=== PATIENT | male | born 1960 ===

== ENCOUNTER → 2020-01-17 08:58 | Outpatient (BNVA) | payer OTHER, SELFPAY | PROVIDERS: PCP Internal Medicine; Visit Provider Physician Assistant Medical | DX: S33.6XXA Sprain of sacroiliac joint, initial encounter (principal); X58.XXXA Exposure to other specified factors, initial encounter | CPT/HCPCS: 99213 ==

== ENCOUNTER → 2020-02-06 14:18 | Outpatient (BNVA) | payer OTHER, SELFPAY | PROVIDERS: PCP Internal Medicine; Visit Provider Physician Assistant Medical | DX: S33.6XXD Sprain of sacroiliac joint, subsequent encounter (principal); X58.XXXD Exposure to other specified factors, subsequent encounter | CPT/HCPCS: 99213 ==

== ENCOUNTER 2020-02-24 10:00 | Outpatient (RCR) | payer OTHER, SELFPAY ==
--- NOTE | 2020-01-24 11:18 | MHC.PT.EP ---
[facility] [place] [facility] [place] Office [place] Office [address] Aislinn Mena [address] [phone] F: [phone] F: [phone] F: [phone] F: [phone] Physical Therapy Plan of Care Date of Evaluation: 01/24/20 Date of Surgery: N/A Diagnosis: R SI sprain Assessment: pt's symptoms and objective findings consistent w/ lumbar nerve root impingement. pt responded well to Chele extension and currently centralizes pain w/ prone lying. pt presents to physical therapy with pain, decreased range of motion, impaired functional mobility, impaired postural awareness, and gait deviations. pt is a good candidate for skilled PT due to age, potential remediation of impairments, typical disease/condition progression and prognosis, comorbidities, and motivation. pt would benefit from tailored strengthening and stretching exercise program, functional training, gait training, postural re-training, neuromuscular re-education, modalities as needed for pain, and work-related education and training. Frequency and Duration: The patient will be seen 2x/wk for 5 wks Short Term Goals: pt will be I w/ HEP to promote self-management of condition. pt will demo proper sitting posture w/ lumbar roll to encourage lumbar lordosis posturing. 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 pt will report statistically significant improvement in self-reported outcome measure, Melva, to facilitate full return to ADLs. Treatment Plan: Modalities to reduce pain, spasms and effusion. Manual therapy to restore motion and function. Therapeutic exercise to improve strength and flexibility. Neuromuscular re-education for posture and balance. Therapeutic activities to return to functional activities of daily living. Please sign and return to therapist. Thank you for your referral.
--- NOTE | 2020-02-24 10:51 | MHC.PT.DC ---
[facility] [place] Office [place] Office [place] Office [address] Aislinn Mena 140 [facility] [phone] F: [phone] F: [phone] F: [phone] F: [phone] Physical Therapy Discharge Report Diagnosis: R SI sprain Date of Surgery: N/A Date of Evaluation: 01/24/20 Date of Discharge: 02/24/20 Treatments to Date: 10 Cancellations to Date: 0 No Shows to Date: 0 Discharge Status: Achieved Goals Improved Function Independent with HEP Discharge Summary: The patient has improved significantly regarding his pain severity, frequency, and ability to tolerate therapeutic exercise and activity. He has participated in lifting mechanics and how safely lift objects at work. The patient has achieved all goals established at the initial evaluation. He is independent with his home exercise program. He reported a statistically significant improvement in his self-reported outcome measure, Modified Oswestry Disability Index, compared to the initial evaluation. He is discharged from this physical therapy plan of care to his home exercise program. Electronically signed by: Garima Stevens PT, DPT Please sign and return to therapist. Thank you for your referral.
== END 2020-02-24 10:51 | disposition other institution (70) ==
LOC: HO.PT 10:00
PROVIDERS: Visit Provider Internal Medicine
DX: S33.6XXD Sprain of sacroiliac joint, subsequent encounter (principal)
CPT/HCPCS: 97110; 97140; 97161; 97530

== ENCOUNTER → 2020-02-25 09:20 | Outpatient (BNVA) | payer OTHER, SELFPAY | PROVIDERS: PCP Internal Medicine; Visit Provider Physician Assistant | DX: S33.6XXD Sprain of sacroiliac joint, subsequent encounter (principal); X58.XXXD Exposure to other specified factors, subsequent encounter | CPT/HCPCS: 99213 ==

== ENCOUNTER 2020-04-07 07:36 | Outpatient (REF) | payer OTHER, SELFPAY | END 2020-04-07 07:37 | disposition home or self-care (01) | LOC: HO.LAB 07:36 | PROVIDERS: PCP Internal Medicine; Visit Provider Internal Medicine | DX: Z20.828 Contact with and (suspected) exposure to other viral communicable diseases (principal) | CPT/HCPCS: C9803; U0003 ==

== ENCOUNTER 2020-04-08 11:49 | Emergency (ER) | payer OTHER, SELFPAY ==
[2020-04-08 12:00] VITALS: BP 136/78; RESP 88; TEMP 37.7; O2SAT 98
[2020-04-08 12:02] VITALS: BP 134/82; PULSE 115; RESP 18; TEMP 38.8; O2SAT 96; BMI 29.7
--- NOTE | 2020-04-08 12:23 | XR_ITS ---
EXAMINATION: XR CHEST CLINICAL INFORMATION: Cough and fever. COMPARISON: None TECHNIQUE: Frontal view of the chest was obtained. FINDINGS: The lungs are well-expanded with patchy opacity left midlung likely focal infiltrate. Rest of lungs are clear. The heart size and pulmonary vascularity is normal. No gross bony abnormality seen. XR/XR chest 1V IMPRESSION: Focal patchy opacity left midlung question for infiltrate or underlying lesion. No additional abnormality seen..
[2020-04-08] MEDS: Acetaminophen 325 MG TABLET 975 MG PO (12:43)
[2020-04-08] MEDS: 0.9 % Sodium Chloride 1,000 ML 999 ML IV (12:44)
[2020-04-08 12:45] LABS: MANUAL DIFF FLAG NO
[2020-04-08 12:53] LABS: Basophils Percent Auto 0.2 % (0-2); Eosinophils Percent Auto 0.2 % (0-4); Hematocrit 43.1 % (42-52); Hemoglobin 14.8 g/dl (14.0-18.0); Imm Gran Abs Auto 0.01 X10*3/uL (0.00-0.03); Imm Gran Pct Auto 0.2 % (0.0-0.4); Lymphocytes Percent Auto 19.9 % (20-40); Mean Corpuscular HGB Conc 34.3 g/dl (31.0-36.0); Mean Corpuscular Hemoglobin 30.9 pg (27.0-33.0); Mean Platelet Volume 9.6 fL (9.4-12.4); Monocytes Absolute Auto 0.4 X10*3/uL (0.1-1.2); Neutrophils Absolute Auto 3.5 X10*3/uL (2.0-8.3); Neutrophils Percent Auto 71.5 % (45-73); Platelet Count 175 X10*3/uL (160-400); Red Blood Count 4.79 X10*6/uL (4.60-5.80); Red Cell Distribution Width 11.6 % (11.0-16.0); White Blood Count 4.9 X10*3/uL (4.8-10.8)
[2020-04-08 13:13] LABS: Alanine Aminotransferase 26 U/L (0-40); Albumin Level 3.9 g/dL (3.5-5.0); Alkaline Phosphatase 59 U/L (39-117); Anion Gap 12 (12-20); Aspartate Amino Transferase 19 U/L (5-37); Bilirubin Total 0.6 mg/dL (0.0-1.0); Blood Urea Nitrogen 19 mg/dL (9-16); Calcium 8.3 mg/dL (8.4-10.2); Carbon Dioxide 27 mmol/L (22-29); Chloride 104 mmol/L (96-108); Creatinine Clr Calc Pharmacy 82.7; Estimated Glomerular Filt Rate > 60; Glucose Random 98 mg/dL (60-115); Potassium 3.7 mmol/l (3.3-5.1); Sodium 139 mmol/L (135-145); Total Protein 6.8 g/dL (6.5-8.0)
[2020-04-08 13:19] LABS: Troponin-I High Sensitivity < 3.5 ng/L (<3.5-35.0)
[2020-04-08 13:31] LABS: Influenza A PCR NEGATIVE (Negative); Influenza B PCR NEGATIVE (Negative); Resp Syncy Virus RNA Qual PCR NEGATIVE (Negative); SARS COV2 PCR INHOUSE POSITIVE (Negative)
[2020-04-08 14:00] VITALS: BP 132/78; PULSE 86; RESP 18; TEMP 37.3; O2SAT 98
--- NOTE | 2020-04-08 14:21 | ED_ITS ---
HPI - URI/Sore Throat General Chief Complaint: Fever Stated Complaint: cough and fever Time Seen by Provider: 04/08/20 12:23 Source: patient Mode of arrival: ambulatory Limitations: no limitations History of Present Illness HPI Narrative: Cough, runny nose, congestion, body aches chills with subjective fever MD elicited complaint: cough Onset (ago): day(s) (2 days) Description of mucous: clear Relieving factors: nothing Associated symptoms: denies other symptoms Treatments prior to arrival: none Related Data Previous Rx's Medication Instructions Recorded albuterol sulfate 2 puff INHALATION Q4-6H PRN #8.5 g 04/08/20 azithromycin [Zithromax Z-Boinlla] 250 mg PO DAILY 5 Days #6 tab 04/08/20 benzonatate [Tessalon Perles] 100 mg PO BID PRN #14 cap 04/08/20 Allergies Allergy/AdvReac Type Severity Reaction Status Date / Time No Known Allergies Allergy Verified 04/08/20 12:08 Review of Systems Review of Systems: Constitutional: No Weight loss, No Fever, No Chills, No Night Sweats, No Fatigue, No Malaise ENT/Mouth: No Hearing loss, No Ear Pain, + Nasal Congestion, No Sinus Pain, No Hoarseness,No sore throat, + Rhinorrhea, No Swallowing Difficulty Eyes: No Eye Pain, No Swelling, No Redness, No Foreign Body, No Discharge, No Vision Changes Cardiovascular: No Chest Pain, No SOB, No Dyspnea on Exertion, No Orthopnea, No Edema, No Palpitations Respiratory: + Cough, No Sputum, No Wheezing, No Smoke Exposure, No Dyspnea Gastrointestinal: No Nausea, No Vomiting, No Diarrhea, No Constipation, No abdominal Pain Genitourinary: No Dysuria, No Urinary Frequency, No Hematuria, No Urinary Incontinence, No Urgency, No Flank Pain, No Urinary Flow Changes Musculoskeletal: No joint pain, No Myalgias, No Joint Swelling Skin: No Skin Lesions, No rash Neuro: No Weakness, No Numbness, No Paresthesias, No Loss of Consciousness, No Dizziness, No Headache Psych: No Social Issues Heme/Lymph: No Bruising, No Bleeding,No Lymphadenopathy Endocrine: No Polyuria, No Polydipsia, No Temperature Intolerance Yes all other systems are reviewed and are negative PMFSH Past Medical History Medical History Hypertension No known health problems Social History Social History Advance Directives: No Advance Directives Information Provided: Yes Physical Exam Vital Signs: Vital Signs: Last Vital Signs Temp 99.2 F 04/08/20 14:00 Pulse 86 04/08/20 14:00 Resp 18 04/08/20 14:00 BP 132/78 04/08/20 14:00 Pulse Ox 98 04/08/20 14:00 Body Mass Index 29.7 Reviewed Const: General: cooperative and healthy appearing; No acute distress or intoxicated appearing Nutritional Appearance: average body habitus Orien tation/consciousness: patient oriented x3 HENMT: Head: Yes normal to inspection Ears: hearing grossly normal bilaterally Eyes: General: appearance normal, both eyes and all related structures Visual Campbell: normal visual campbell by confrontation Neck: Neck: Yes normal visual inspection, No positive Brudzinski's sign, No positive Kernig's sign and No tender Thyroid: Thyroid normal Chest: Chest palpation & inspection: normal inspection of the chest Breast /axilla inspection: normal inspection of the breasts Resp: Effort & Inspection: normal respiratory effort Auscultation: clear to auscultation bilaterally Cardio: Jugular venous distension: no JVD Rhythm: regular rhythm Heart sounds: S1 normal heart sound present and S2 normal heart sound present GI: Inspection: Yes normal to inspection Percussion: Yes normal to percus olivia Auscultation: normal bowel sounds : General: Yes no CVA tenderness Back/Spine/Pelvis: Back: no CVA tenderness Skin: General skin exam: no rashes or lesions noted Neuro: General: patient oriented x3 Extrem: General: Yes normal to inspection MDM - URI/Sore Throat MDM Narrative Medical decision making narrative: Labs overall stable chest x-ray finding is noted. Patient overall nontoxic appearing. Hemodynamically stable. Pulse ox 98% on room air. Will discharge with home care, return, follow-up instructions. Verbalized understanding. Stable for discharge. Differential Diagnosis Differential diagnosis: Likely upper respiratory infection, viral infection, bronchitis and influenza; Unlikely croup, otitis media, sinusitis and pharyngitis Medical Records Attestation: I reviewed the patient's medical records. Lab Data Attestation: I reviewed the patient's lab results. Result diagrams: 04/08/20 12:36 04/08/20 12:36 Labs: Lab Results 04/08/20 04/08/20 04/08/20 Range/Units 12:29 12:36 12:36 WBC 4.9 (4.8-10.8) X10*3/uL RBC 4.79 (4.60-5.80) X10*6/uL Hgb 14.8 (14.0-18.0) g/dl Hct 43.1 (42-52) % MCV 90.0 (80-98) fL MCH 30.9 (27.0-33.0) pg MCHC 34.3 (31.0-36.0) g/dl RDW 11.6 (11.0-16.0) % Plt Count 175 (160-400) X10*3/uL MPV 9.6 (9.4-12.4) fL Immature Gran % (Auto) 0.2 (0.0-0.4) % Neut % (Auto) 71.5 (45-73) % Lymph % (Auto) 19.9 L (20-40) % Bucks % (Auto) 8.0 (2-11) % Eos % (Auto) 0.2 (0-4) % Baso % (Auto) 0.2 (0-2) % Lymph # (Auto) 1.0 L (1.2-4.9) X10*3/uL Bucks # (Auto) 0.4 (0.1-1.2) X10*3/uL Eos # (Auto) 0.0 (0.0-0.4) X10*3/uL Baso # (Auto) 0.0 (0.0-0.2) X10*3/uL Abs Immat Gran (auto) 0.01 (0.00-0.03) X10*3/uL Absolute Neuts (auto) 3.5 (2.0-8.3) X10*3/uL Absolute Nucleated RBC 0.000 (0.0-0.012) X10*3/uL Nucleated RBC % (auto) 0.0 (0.0-0.2) /100WBC Sodium 139 (135-145) mmol/L Potassium 3.7 (3.3-5.1) mmol/l Chloride 104 (96-108) mmol/L Carbon Dioxide 27 (22-29) mmol/L Anion Gap 12 (12-20) BUN 19 H (9-16) mg/dL Creatinine 1.02 (0.5-1.4) mg/dL Estim Creat Clear Calc 82.7 Estimated GFR > 60 Random Glucose 98 (60-115) mg/dL Calcium 8.3 L (8.4-10.2) mg/dL Total Bilirubin 0.6 (0.0-1.0) mg/dL AST 19 (5-37) U/L ALT 26 (0-40) U/L Alkaline Phosphatase 59 (39-117) U/L Troponin I High Sens (<3.5-35.0) ng/L Total Protein 6.8 (6.5-8.0) g/dL Albumin 3.9 (3.5-5.0) g/dL Coronavirus (PCR) POSITIVE A (Negative) Influenza Type A (PCR) NEGATIVE (Negative) Influenza Type B (PCR) NEGATIVE (Negative) RSV RNA Qual (PCR) NEGATIVE (Negative) 04/08/20 Range/Units 12:36 WBC (4.8-10.8) X10*3/uL RBC (4.60-5.80) X10*6/uL Hgb (14.0-18.0) g/dl Hct (42-52) % MCV (80-98) fL MCH (27.0-33.0) pg MCHC (31.0-36.0) g/dl RDW (11.0-16.0) % Plt Count (160-400) X10*3/uL MPV (9.4-12.4) fL Immature Gran % (Auto) (0.0-0.4) % Neut % (Auto) (45-73) % Lymph % (Auto) (20-40) % Bucks % (Auto) (2-11) % Eos % (Auto) (0-4) % Baso % (Auto) (0-2) % Lymph # (Auto) (1.2-4.9) X10*3/uL Bucks # (Auto) (0.1-1.2) X10*3/uL Eos # (Auto) (0.0-0.4) X10*3/uL Baso # (Auto) (0.0-0.2) X10*3/uL Abs Immat Gran (auto) (0.00-0.03) X10*3/uL Absolute Neuts (auto) (2.0-8.3) X10*3/uL Absolute Nucleated RBC (0.0-0.012) X10*3/uL Nucleated RBC % (auto) (0.0-0.2) /100WBC Sodium (135-145) mmol/L Potassium (3.3-5.1) mmol/l Chloride (96-108) mmol/L Carbon Dioxide (22-29) mmol/L Anion Gap (12-20) BUN (9-16) mg/dL Creatinine (0.5-1.4) mg/dL Estim Creat Clear Calc Estimated GFR Random Glucose (60-115) mg/dL Calcium (8.4-10.2) mg/dL Total Bilirubin (0.0-1.0) mg/dL AST (5-37) U/L ALT (0-40) U/L Alkaline Phosphatase (39-117) U/L Troponin I High Sens < 3.5 (<3.5-35.0) ng/L Total Protein (6.5-8.0) g/dL Albumin (3.5-5.0) g/dL Coronavirus (PCR) (Negative) Influenza Type A (PCR) (Negative) Influenza Type B (PCR) (Negative) RSV RNA Qual (PCR) (Negative) Imaging Data Chest x-ray: Radiologist's impression: [place] [id number] XRay Report Signed Patient: Irais Maguire#: [id number] : 2Acct:[id number] Age/Sex: 59 / MADM Date: 04/08/20 Loc: HO.ED Attending Dr: Ordering Physician: Jon Gibbs NP Date of Service: 04/08/20 Procedure(s): XR chest 1V Accession Number(s): [id number] cc: Jon Gibbs 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 COMPARISON: None TECHNIQUE: Frontal view of the chest was obtained. FINDINGS: The lungs are well-expanded with patchy opacity left midlung likely focal infiltrate. Rest of lungs are clear. The heart size and pulmonary vascularity is normal. No gross bony abnormality seen. XR/XR chest 1V IMPRESSION: Focal patchy opacity left midlung question for infiltrate or underlying lesion. No additional abnormality seen.. Dictated By:HARDIK OSEGUERA MD Signed By:<Electronically signed by HARDIK OSEGUERA MD in OV>04/08/20 1309 DD/ 1223 TD/TT: [place] [facility] [place] Discharge Clinical Impression: COVID-19, Abnormal chest x-ray Patient Disposition: Home, Self-Care Instructions: Pulmonary Nodules (ED), COVID-19 (Coronavirus Disease 2019) (ED) Additional Instructions: Isolate Social distancing for 14 days Push fluids Take medication prescribed Return if any concerns or worsening symptoms otherwise supportive care as discussed Thank you Prescriptions: New azithromycin [Zithromax Z-Bonilla] 250 mg tablet 250 mg PO DAILY 5 Days Qty: 6 RF: 0 benzonatate [Tessalon Perles] 100 mg capsule 100 mg PO BID PRN (Reason: cough) Qty: 14 RF: 0 albuterol sulfate 90 mcg/actuation HFA aerosol inhaler 2 puff inhalation Q4-6H PRN (Reason: shortness of breath or wheezing) Qty: 8.5 RF: 0 Referrals: Poly Sprague MD [Primary Care Provider] - 2 weeks (Phone visit) Stand Alone Forms: Work/School Release Interventions: ED Discharge Assessment Last Done: 04/08/20 14:38 Discharge Date/Time: 04/08/20 14:44
== END 2020-04-08 14:44 | disposition home or self-care (01) ==
PROVIDERS: Nurse Practitioner Primary Care; Emergency Provider Emergency Medicine; PCP Internal Medicine
DX: U07.1 COVID-19 (principal); R91.8 Other nonspecific abnormal finding of lung field; R91.1 Solitary pulmonary nodule; I10 Essential (primary) hypertension
CPT/HCPCS: 0241U; 36415; 71045; 80053; 84484; 85025; 96360; 99284

== ENCOUNTER 2020-04-15 15:46 | Emergency (ER) | payer OTHER, SELFPAY | END 2020-04-15 17:45 | disposition left against medical advice (07) | PROVIDERS: Emergency Provider Emergency Medicine; PCP Internal Medicine | DX: R06.02 Shortness of breath (principal); Z20.828 Contact with and (suspected) exposure to other viral communicable diseases ==

== ENCOUNTER 2021-02-02 11:03 | Emergency (ER) | payer OTHER, SELFPAY ==
[2021-02-02 12:03] VITALS: BP 153/98; PULSE 74; RESP 18; TEMP 36.7; O2SAT 98; BMI 31.9
[2021-02-02 12:33] LABS: IDNOW Serial# 9DD0AD1C; Strep A Nucleic Acid Negative (Negative)
[2021-02-02 12:37] LABS: COVID-19 Test Negative (Negative)
--- NOTE | 2021-02-02 13:31 | ED_ITS ---
HPI - URI/Sore Throat General Chief Complaint: Upper Respiratory Symptoms Stated Complaint: Cold symptoms Time Seen by Provider: 02/02/21 13:21 Source: patient Mode of arrival: ambulatory Limitations: no limitations History of Present Illness HPI Narrative: He 10-year-old male presenting with 3 days of productive cough of yellow phlegm, itchy dry throat, headaches and body aches. He is fully vaccinated against COVID-19 and had COVID last March. He has no shortness of breath or chest pain. He generally feels unwell. He denies sick contacts. He is able to eat and drink normally. He has no nausea or vomiting. No diarrhea or abdominal pain. He denies fevers at home. His cough kept about a lot of the night last night prompting ER evaluation today. MD elicited complaint: cough, sore throat and nasal congestion Onset (ago): day(s) (3) Consistency: intermittent Severity: moderate Description of mucous: yellow Able to tolerate fluids by mouth: Yes Exacerbating factors: other (Nighttime) Relieving factors: OTC cold medicine Associated symptoms: myalgias, headache, nasal congestion, sore throat and cough Treatments prior to arrival: none Related Data Previous Rx's Medication Instructions Recorded albuterol sulfate 90 mcg/actuation 2 puff INHALATION Q4-6H PRN #8.5 g 04/08/20 aerosol inhaler azithromycin 250 mg tablet 250 mg PO DAILY 5 Days #6 tab 04/08/20 (Zithromax Z-Bonilla) benzonatate 100 mg capsule 100 mg PO BID PRN #14 cap 04/08/20 (Tessalon Malvines) azithromycin 250 mg tablet See Rx Instructions .ROUTE 02/02/21 (Zithromax Z-Bonilla) .COMPLEX #6 tab hydrocodone-homatropine 5 mg-1.5 5 ml PO Q6H PRN #60 ml 02/02/21 mg/5 mL (5 mL) oral syrup (Hycodan) prednisone 20 mg tablet 40 mg PO DAILY #10 tab 02/02/21 Allergies Allergy/AdvReac Type Severity Reaction Status Date / Time No Known Allergies Allergy Verified 02/02/21 12:03 Review of Systems Review of Systems: Constitutional: No Fever, No Chills ENT/Mouth: + sore throat, No Rhinorrhea, No Swallowing Difficulty Cardiovascular: No Chest Pain, No SOB Respiratory: + Cough, + Sputum, No Wheezing, No dyspnea Gastrointestinal: No Nausea, No Vomiting, No Diarrhea, No abdominal Pain Genitourinary: No Dysuria, No Urinary Frequency, No Hematuria Musculoskeletal: No joint pain, + Myalgias Skin: No Skin Lesions, No rash Neuro: No Weakness, No Numbness, No Dizziness, + Headache Heme/Lymph: No Bruising, No Lymphadenopathy PMFSH Past Medical History Medical History (Updated 02/02/21 @ 13:31 by SHAWANDA Gonzalez) Hypertension Social History Social History Advance Directives: No Advance Directives Information Provided: No Physical Exam Vital Signs: Vital Signs: Last Vital Signs Temp 98.1 F 02/02/21 12:03 Pulse 74 02/02/21 12:03 Resp 18 02/02/21 12:03 BP 153/98 H 02/02/21 12:03 Pulse Ox 98 02/02/21 12:03 Body Mass Index 31.9 Appearance: Alert. Oriented X3. No acute distress. ENT: Pharynx with mild generalized erythema, no tonsillar swelling or exudate, uvula midline. Neck: Normal inspection. Neck supple. CVS: Normal heart rate and rhythm. Pulses normal. Respiratory: No respiratory distress. Breath sounds normal. Abdomen: Soft and non-tender. +BS x4 Skin: Skin warm and dry. Normal skin color. Normal skin turgor. No rashes. Extremities: No lower extremity edema. Neuro: Oriented X 3. Grossly normal. Course Course Course Narrative: 60 y/o male presenting with productive cough, body aches and headaches x3 days. On arrival his VS are normal. He exam is benign with clear lung sounds and no respiratory distress. COVID test is negative. Clinical presentation and exam are most consistent with acute bronchitis. Will treat accordingly. He is stable for p.o. treatment as an outpatient. He will follow- up with his primary care doctor. Stable for discharge home. MDM - URI/Sore Throat Lab Data Labs: Lab Results 02/02/21 02/02/21 Range/Units 12:09 12:09 COVID-19 (LUCIANO) Negative (Negative) COVID-19 Clin Com See Note S. pyogenes GrpA GABRIELA Negative (Negative) Critical Care Time Critical Care Time Critical Care Time: No Discharge Plan Discharge Clinical Impression: Bronchitis Patient Disposition: Home, Self-Care Instructions: Acute Bronchitis (ED) Additional Instructions: Urine negative for COVID-19 today Your being treated for acute bronchitis Take all medications as prescribed. The cough syrup has a narcotic in it and may make you tired. Do not drive after taking this medication. Rest and stay hydrated. Recommend [id number] Mucinex and cold and flu medications as needed for your symptoms. Use warm salt water gargles for your sore throat. Take Tylenol and/or Motrin as needed for headache and sore throat. Follow-up with your doctor in 1 week. If you develop new or worsening symptoms call 911 or come back to the ER for further evaluation. Prescriptions: New azithromycin [Zithromax Z-Bonilla] 250 mg tablet See Rx Instructions .ROUTE .COMPLEX Qty: 6 RF: 0 prednisone 20 mg tablet 40 mg PO DAILY Qty: 10 RF: 0 hydrocodone-homatropine [Hycodan] 5-1.5 mg/5 mL (5 mL) syrup 5 ml PO Q6H PRN (Reason: cough) Qty: 60 RF: 0 No Action azithromycin [Zithromax Z-Bonilla] 250 mg tablet 250 mg PO DAILY 5 Days Qty: 6 RF: 0 benzonatate [Tessalon Perles] 100 mg capsule 100 mg PO BID PRN (Reason: cough) Qty: 14 RF: 0 albuterol sulfate 90 mcg/actuation HFA aerosol inhaler 2 puff inhalation Q4-6H PRN (Reason: shortness of breath or wheezing) Qty: 8.5 RF: 0 Stand Alone Forms: Work/School Release Interventions: ED Discharge Assessment Last Done: 02/02/21 13:40 Discharge Date/Time: 02/02/21 13:41
== END 2021-02-02 13:41 | disposition home or self-care (01) ==
PROVIDERS: Emergency Provider Emergency Medicine Emergency Medical Services; PCP Internal Medicine
DX: J20.9 Acute bronchitis, unspecified (principal); I10 Essential (primary) hypertension; Z20.822 Contact with and (suspected) exposure to COVID-19
CPT/HCPCS: 36415; 87635; 87651; 99283

== ENCOUNTER 2021-03-16 12:01 | Outpatient (REF) | payer OTHER, SELFPAY ==
[2021-03-16 12:47] LABS: COVID-19 Test Negative (Negative)
== END 2021-03-16 12:02 | disposition home or self-care (01) ==
LOC: HO.LAB 12:01
PROVIDERS: PCP Internal Medicine; Visit Provider Internal Medicine
DX: Z20.822 Contact with and (suspected) exposure to COVID-19 (principal)
CPT/HCPCS: 36415; 87635; C9803

== ENCOUNTER 2021-10-26 14:03 | Emergency (ER) | payer OTHER, SELFPAY ==
--- NOTE | ~2021-10-26 | XR_ITS ---
EXAMINATION: XR CHEST CLINICAL INFORMATION: Hypertension COMPARISON: Previous chest x-ray March 2020 TECHNIQUE: 2 views of the chest were obtained. FINDINGS: The cardiac and mediastinal contours are stable. The lungs are clear. There is no pleural effusion or pneumothorax. There are degenerative changes of the spine. XR/XR chest 2V IMPRESSION: No evidence for acute disease in the chest.
[2021-10-26 14:30] VITALS: BP 148/86; PULSE 74; RESP 18; TEMP 36.6; O2SAT 98; BMI 30.7
--- NOTE | 2021-10-26 14:34 | ECG_ITS ---
Test Reason : shortness of breath Blood Pressure : / mmHG Vent. Rate : 067 BPM Atrial Rate : 067 BPM P-R Int : 190 ms QRS Dur : 090 ms QT Int : 380 ms P-R-T Axes : 062 035 033 degrees QTc Int : 401 ms Normal sinus rhythm Normal ECG No previous ECGs available Referred By: Generic ED Physician Electronically Signed By:KESHA ATKINSON MD
[2021-10-26 14:57] LABS: MANUAL DIFF FLAG NO
[2021-10-26 14:59] LABS: Basophils Percent Auto 0.3 % (0-2); Eosinophils Absolute Auto 0.1 X10*3/uL (0.0-0.4); Hematocrit 38.9 % (42.0-52.0); Hemoglobin 13.7 g/dl (14.0-18.0); Imm Gran Abs Auto 0.02 X10*3/uL (0.00-0.03); Imm Gran Pct Auto 0.3 % (0.0-0.4); Lymphocytes Absolute Auto 1.4 X10*3/uL (1.2-4.9); Lymphocytes Percent Auto 22.9 % (20-40); Mean Corpuscular HGB Conc 35.2 g/dl (31.0-36.0); Mean Corpuscular Hemoglobin 30.7 pg (27.0-33.0); Mean Corpuscular Volume 87.2 fL (80.0-98.0); Mean Platelet Volume 9.1 fL (9.4-12.4); Monocytes Absolute Auto 0.5 X10*3/uL (0.1-1.2); Monocytes Percent Auto 8.6 % (2-11); Neutrophils Absolute Auto 4.1 x10*3/uL (2.0-8.3); Neutrophils Percent Auto 66.9 % (45-73); Platelet Count 208 X10*3/uL (160-400); Red Blood Count 4.46 X10*6/uL (4.60-5.80); Red Cell Distribution Width 11.5 % (11.0-16.0); White Blood Count 6.2 X10*3/uL (4.8-10.8)
[2021-10-26 15:16] LABS: Anion Gap 11 (12-20); Blood Urea Nitrogen 20 mg/dL (9-16); Calcium 8.5 mg/dL (8.4-10.2); Carbon Dioxide 23 mmol/L (22-29); Chloride 106 mmol/L (96-108); Creatinine Clr Calc Pharmacy 89.9; Estimated Glomerular Filt Rate > 60; Glucose Random 96 mg/dL (60-115); Potassium 4.2 mmol/L (3.3-5.1); Sodium 136 mmol/L (135-145)
[2021-10-26 15:23] LABS: Troponin-I High Sensitivity < 3.5 ng/L (<3.5-35.0)
--- NOTE | 2021-10-26 22:31 | ED_ITS ---
HPI - General Adult General Chief complaint: General Medical Stated complaint: high bp Time Seen by Provider: 10/26/21 22:31 Source: patient Mode of arrival: ambulatory Limitations: no limitations History of Present Illness HPI narrative: Patient with history of high blood pressure not taking his medication for few months history of chronic dizziness comes here as a feeling dizzy with multiple complaints poor balance chest pain off and on right arm pain for last 2 days at this time patient denies any dizziness no chest pain no shortness of breath no headache no nausea no vomiting Related Data Previous Rx's Medication Instructions Recorded albuterol sulfate 90 mcg/actuation 2 puff inhalation Q4-6H PRN 04/08/20 aerosol inhaler shortness of breath or wheezing #8.5 grams azithromycin 250 mg tablet 250 mg PO DAILY 5 days #6 tabs 04/08/20 (Zithromax Z-Bonilla) benzonatate 100 mg capsule 100 mg PO BID PRN cough #14 caps 04/08/20 (Tessalon Perles) azithromycin 250 mg tablet See Rx Instructions PO .COMPLEX #6 02/02/21 (Zithromax Z-Bonilla) tabs hydrocodone-homatropine 5 mg-1.5 5 ml PO Q6H PRN cough #60 mL 02/02/21 mg/5 mL (5 mL) oral syrup (Hycodan) prednisone 20 mg tablet 40 mg PO DAILY #10 tabs 02/02/21 lisinopril 20 1 tab PO DAILY #90 tabs 10/27/21 mg-hydrochlorothiazide 12.5 mg tablet Allergies Allergy/AdvReac Type Severity Reaction Status Date / Time No Known Allergies Allergy Verified 02/02/21 12:03 Review of Systems Review of Systems: Yes all other systems are reviewed and are negative [facility] Past Medical History Medical History Hypertension Social History Social History Advance Directives: No Advance Directives Information Provided: Yes Physical Exam ED Vital Signs: Vital Signs - 24 hr 10/26/21 14:30 10/26/21 22:49 10/27/21 00:55 Temperature 98 F 98.2 F Pulse Rate 74 62 61 Respiratory Rate 18 18 18 Blood Pressure 148/86 H 206/105 H 177/93 H Pulse Oximetry 98 99 100 Oxygen Delivery Method Room Air Room Air Room Air BMI result Body Mass Index 30.7 Appearance: Alert. Oriented X3. No acute distress. Eyes: PERRLA, No Nystagmus ENT: Pharynx normal. Oral Mucosa moist Neck: Normal inspection. Neck supple. CVS: Normal heart rate and rhythm. Pulses normal. Respiratory: No respiratory distress. Equal air entry bilateral, no wheezing/rales/rhonchi Abdomen: Soft and nontender. Bowel sounds are present, no mass palpable, no CVA tenderness Skin: Skin warm and dry. Normal skin color. Normal skin turgor. Extremities: No lower extremity edema. No calf tenderness Neuro: Oriented X 3. No motor deficit. No sensory deficit.No cerebellar signs , cranial nerves II-XII intact Medical Decision Making MDM Narrative Medical decision making narrative: 0055 Patient has hypertension noncompliant with his medication came here for high blood pressure and dizziness initial blood pressure was 188/86 repeat blood pressure 206/105 patient was given lisinopril 20 mg repeat blood pressure was 177/93 Lab Data Lab results reviewed: Yes I reviewed the patient's lab results. Result diagrams: 10/26/21 14:53 10/26/21 14:52 Labs: Lab Results 10/26/21 10/26/21 10/26/21 Range/Units 14:52 14:52 14:53 WBC 6.2 (4.8-10.8) X10*3/uL RBC 4.46 L (4.60-5.80) X10*6/uL Hgb 13.7 L (14.0-18.0) g/dl Hct 38.9 L (42.0-52.0) % MCV 87.2 (80.0-98.0) fL MCH 30.7 (27.0-33.0) pg MCHC 35.2 (31.0-36.0) g/dl RDW 11.5 (11.0-16.0) % Plt Count 208 (160-400) X10*3/uL MPV 9.1 L (9.4-12.4) fL Immature Gran % (Auto) 0.3 (0.0-0.4) % Neut % (Auto) 66.9 (45-73) % Lymph % (Auto) 22.9 (20-40) % Independence % (Auto) 8.6 (2-11) % Eos % (Auto) 1.0 (0-4) % Baso % (Auto) 0.3 (0-2) % Lymph # (Auto) 1.4 (1.2-4.9) X10*3/uL Independence # (Auto) 0.5 (0.1-1.2) X10*3/uL Eos # (Auto) 0.1 (0.0-0.4) X10*3/uL Baso # (Auto) 0.0 (0.0-0.2) X10*3/uL Abs Immat Gran (auto) 0.02 (0.00-0.03) X10*3/uL Absolute Neuts (auto) 4.1 (2.0-8.3) x10*3/uL Absolute Nucleated RBC 0.000 (0.0-0.012) X10*3/uL Nucleated RBC % (auto) 0.0 (0.0-0.2) /100WBC Sodium 136 (135-145) mmol/L Potassium 4.2 (3.3-5.1) mmol/L Chloride 106 (96-108) mmol/L Carbon Dioxide 23 (22-29) mmol/L Anion Gap 11 L (12-20) BUN 20 H (9-16) mg/dL Creatinine 0.91 (0.5-1.4) mg/dL Estim Creat Clear Calc 89.9 Estimated GFR > 60 Random Glucose 96 (60-115) mg/dL Calcium 8.5 (8.4-10.2) mg/dL Troponin I High Sens < 3.5 (<3.5-35.0) ng/L Discharge Plan Discharge Clinical Impression: Hypertension Patient Disposition: Home, Self-Care Instructions: Chronic Hypertension (ED) Additional Instructions: Decrease salt intake Blood pressure medicine daily as prescribed Follow up with PCP A normal blood pressure should be less than 130/85 Prescriptions: New lisinopril-hydrochlorothiazide 20-12.5 mg tablet 1 tab PO DAILY Qty: 90 2RF No Action azithromycin [Zithromax Z-Bonilla] 250 mg tablet 250 mg PO DAILY 5 Days Qty: 6 0RF benzonatate [Tessalon Perles] 100 mg capsule 100 mg PO BID PRN (Reason: cough) Qty: 14 0RF albuterol sulfate 90 mcg/actuation HFA aerosol inhaler 2 puff inhalation Q4-6H PRN (Reason: shortness of breath or wheezing) Qty: 8.5 0RF azithromycin [Zithromax Z-Bonilla] 250 mg tablet See Rx Instructions .ROUTE .COMPLEX Qty: 6 0RF Rx Instructions: take 500 mg today (day 1), then 250 mg for 4 days (days 2-5) prednisone 20 mg tablet 40 mg PO DAILY Qty: 10 0RF hydrocodone-homatropine [Hycodan] 5-1.5 mg/5 mL (5 mL) syrup 5 ml PO Q6H PRN (Reason: cough) Qty: 60 0RF Stand Alone Forms: Work/School Release
[2021-10-26 22:49] VITALS: BP 206/105; PULSE 62; RESP 18; TEMP 36.8; O2SAT 99
[2021-10-26] MEDS: lisinopriL 20 MG TABLET PO (23:01)
[2021-10-27 00:55] VITALS: BP 177/93; PULSE 61; RESP 18; O2SAT 100
== END 2021-10-27 01:39 | disposition home or self-care (01) ==
PROVIDERS: Emergency Provider Internal Medicine; PCP Internal Medicine
DX: I10 Essential (primary) hypertension (principal); R42 Dizziness and giddiness; R07.89 Other chest pain; Z79.899 Other long term (current) drug therapy
CPT/HCPCS: 36415; 71046; 80048; 84484; 85025; 93005; 99283; 99284

== ENCOUNTER 2022-04-14 14:36 | Outpatient (REF) | payer OTHER, SELFPAY ==
[2022-04-14 15:01] LABS: Binax Internal Control QC Valid; Binax Now Covid-19 Ag Negative (Negative)
== END 2022-04-14 14:37 | disposition home or self-care (01) ==
LOC: HO.HMGCLDS 14:36
PROVIDERS: PCP Internal Medicine
DX: Z20.822 Contact with and (suspected) exposure to COVID-19 (principal); J06.9 Acute upper respiratory infection, unspecified
CPT/HCPCS: 87811; C9803

== ENCOUNTER 2022-11-10 08:27 | Outpatient (AMB) | payer OTHER, SELFPAY ==
--- NOTE | 2022-11-10 08:31 | MHC.OFFWIV ---
Intake Vital Signs 11/10/22 08:36 BP 140/90 H Blood Pressure Location Rt brachial Position Sitting Pulse 82 Pulse Source Pulse Oximeter Temp 97.4 F Temp Source Temporal Artery Scan Pulse Oximetry (%) 98 Oxygen Delivery Method Room Air Intake Visit Reasons: EP infected lt middle finger (lobby) Intake Note: Patient here for infection on left middle finger. Pt states their was no injury but he had ingrown nail and it seems to have gotten infected. Patient Tobacco Use Status: Never used Tobacco Allergies No Known Allergies Allergy (Verified 11/10/22 08:35) Do you need a note to return to daycare/school/sports/work: Yes HPI HPI Comments History of Present Illness Details 61-year-old male presents with right middle finger infection. Denies fevers chills other systemic signs of illness [facility] Medical History Hypertension Viral upper respiratory tract infection with cough Social History Patient Tobacco Use Status: Never used Tobacco Review of Systems Const All systems reviewed & are unremarkable except as noted in HPI and below Reports as per HPI Skin/Breast Details: Swelling of the left middle finger next to the nail. Physical Exam Vital Signs: Last Vital Signs Temp 97.4 F 11/10/22 08:36 Pulse 82 11/10/22 08:36 BP 140/90 H 11/10/22 08:36 Pulse Ox 98 11/10/22 08:36 Oxygen Delivery Method Room Air 11/10/22 08:36 Const General: cooperative, healthy appearing, comfortable, no acute distress, well developed and alert Skin Other: Swelling at the distal tip of the right middle finger sensation intact range of motion intact purulent drainage lateral to the nail fold. Office Procedures I&D Drain [id number] of Skin Abscess, simple All charges added?: Procedure code (CPT) selection complete Assessment & Plan Assessment & Plan (1) Paronychia of finger of right hand: Code(s): L03.011 - Cellulitis of right finger Plan 61-year-old male presents with right middle finger infection. VSS. On exam patient presents alert and oriented no acute distress exam is notable for swelling at the distal tip of the right middle finger. Range of motion sensation intact appearing drainage next on the lateral nail fold. Signs symptoms consistent with a paronychia will perform incision and drainage. Digital block was performed using 1% lidocaine. The area was cleaned with iodine stab incision made with 11 blade purulent material was expressed the wound was irrigated and bandaged. Patient prescribed Keflex for 5 days. Discharge instructions, follow up and treatment are discussed with patient in my usual fashion. Alternatives in treatment are also discussed. The patient will return for worsening symptoms or as needed. Advised that any labs/imaging ordered will be followed up on and contact made if further treatment needed. Counseled that patient's condition may require further evaluation and/or treatment. Symptoms of concern for worsening disorder discussed in detail in my customary manner. Patient does verbalize understanding of the plan, there are no apparent barriers to communication. The patient is given the opportunity to ask questions and have them answered to his/her satisfaction Orders: Orders AMB Incision & Drainage Today L03.011 - Cellulitis of right finger Medications: New cephalexin 500 mg PO QID 20 caps 0RF 5 days Patient Instructions: Please stop picking at your fingers, keep your hands as dry as possible and use gloves for any wet work. Please apply frequent warm soaks to help maintain the patency of the incision and consistent wound drainage. You can apply topical antibiotic such as Neosporin or bacitracin to the area and cover with a Band-Aid. Coding Level of Care Code Est Pt Level 4 (15940) Diagnoses Paronychia of finger of right hand L03.011 CPT Codes I&D Drain - Drain 1: [id number] of Skin Abscess, simple ([id number])
[2022-11-10 08:36] VITALS: BP 140/90; PULSE 82; TEMP 36.3; O2SAT 98
== END 2022-11-10 09:17 | disposition home or self-care (01) ==
PROVIDERS: PCP Internal Medicine; Visit Provider Physician Assistant
DX: L03.011 Cellulitis of right finger (principal)
CPT/HCPCS: 10060; 99214

== ENCOUNTER 2022-12-12 10:38 | Outpatient (AMB) | payer OTHER, SELFPAY ==
--- NOTE | 2022-12-12 10:39 | MHC.OFFWIV ---
Intake Vital Signs 12/12/22 10:40 Height 5 ft 6 in Weight 186 lb 2 oz BMI 30.0 BP 140/76 H Blood Pressure Location Rt brachial Position Sitting Pulse 91 Pulse Source Pulse Oximeter Temp 97.4 F Temp Source Temporal Artery Scan Pulse Oximetry (%) 96 Oxygen Delivery Method Room Air Intake Visit Reasons: EST/back pain when coughing Intake Note: Pt is here c/o lower back pain when coughing or sneezing for the last three days. Patient Tobacco Use Status: Never used Tobacco Allergies No Known Allergies Allergy (Verified 12/12/22 10:55) Medication List - Last Reconciled 12/12/22 by Vaibhav Rodríguez MD albuterol sulfate 90 mcg/actuation 2 puffs inhalation Q4-6H PRN azithromycin (Zithromax Z-Bonilla) 250 mg PO DAILY 5 days azithromycin (Zithromax Z-Bonilla) take 500 mg today (day 1), then 250 mg for 4 days (days 2-5) benzonatate (Tessalon Perles) 100 mg PO BID PRN cephalexin 500 mg PO QID 5 days hydrocodone-homatropine 5-1.5 mg/5 mL (5 mL) (Hycodan) 5 mL PO Q6H PRN lisinopril-hydrochlorothiazide 20-12.5 mg 1 tab PO DAILY ondansetron HCl 8 mg PO Q8-12H PRN 4 days prednisone 40 mg (2 x 20 mg) PO DAILY simvastatin 40 mg PO BEDTIME Do you need a note to return to daycare/school/sports/work: Yes HPI EST/back pain when coughing HPI Details Patient presents for a sick visit. Reporting symptoms of sinus congestion, sore throat and difficulty swallowing. Low-grade fever. No family member is sick. No recent travel. Patient reports symptoms of malaise and fatigue. [facility] Medical History Hypertension Viral upper respiratory tract infection with cough Social History Patient Tobacco Use Status: Never used Tobacco Physical Exam Vital Signs: Last Vital Signs Temp 97.4 F 12/12/22 10:40 Pulse 91 12/12/22 10:40 BP 140/76 H 12/12/22 10:40 Pulse Ox 96 12/12/22 10:40 Oxygen Delivery Method Room Air 12/12/22 10:40 BMI result Body Mass Index 30.0 Const General: cooperative and healthy appearing Nutritional Appearance: well nourished Orientation/consciousness: patient oriented x3 Limitations: no limitations HEENT Head: Yes normal to inspection Eyes General: appearance normal, both eyes and all related structures Neck Neck: Yes normal visual inspection Chest Chest palpation & inspection: normal palpation of entire chest wall Resp Effort & Inspection: normal respiratory effort Neuro General: patient oriented x3 Assessment & Plan Assessment & Plan (1) Viral upper respiratory tract infection with cough: Code(s): J06.9 - Acute upper respiratory infection, unspecified Plan: Increase fluid intake. Tylenol for aches and pains. If symptoms worsen, follow-up here for a recheck. Antibiotics not needed. Coding Level of Care Code Est Pt Level 3 (00540) Diagnoses Viral upper respiratory tract infection with cough J06.9
[2022-12-12 10:40] VITALS: BP 140/76; PULSE 91; TEMP 36.3; O2SAT 96
== END 2022-12-12 11:11 | disposition home or self-care (01) ==
PROVIDERS: PCP Internal Medicine; Visit Provider Internal Medicine
DX: J06.9 Acute upper respiratory infection, unspecified (principal)
CPT/HCPCS: 99213

== ENCOUNTER 2022-12-14 12:45 | Outpatient (AMB) | payer OTHER, SELFPAY ==
--- NOTE | 2022-12-14 14:11 | MHC.OFFWIV ---
Intake Vital Signs 12/14/22 14:12 Height 5 ft 6 in Weight 184 lb 6 oz BMI 29.8 BP 130/70 Blood Pressure Location Lt brachial Position Sitting Pulse 90 Pulse Source Pulse Oximeter Temp 97.2 F Temp Source Temporal Artery Scan Pulse Oximetry (%) 97 Oxygen Delivery Method Room Air Intake Visit Reasons: EP;cough, fatigue, watery eyes [phone] Intake Note: Pt is here c/o bad cough, fatigue and bilateral watery eyes. Pt states his fever last night was 101. Patient Tobacco Use Status: Never used Tobacco Allergies No Known Allergies Allergy (Verified 12/14/22 15:11) Medication List - Last Reconciled 12/14/22 by Vaibhav Rodríguez MD azithromycin take 500 mg today (day 1), then 250 mg for 4 days (days 2-5) PO hydrocodone-homatropine 5-1.5 mg/5 mL (5 mL) (Hycodan) 5 mL PO Q6H PRN lisinopril-hydrochlorothiazide 20-12.5 mg 1 tab PO DAILY meloxicam 15 mg PO DAILY simvastatin 40 mg PO BEDTIME Do you need a note to return to daycare/school/sports/work: Yes HPI EP;cough, fatigue, watery eyes [phone] HPI Details Patient presents for a sick visit. Reporting symptoms of sinus congestion, sore throat and difficulty swallowing. Low-grade fever. No family member is sick. No recent travel. Patient reports symptoms of malaise and fatigue. [facility] Medical History Hypertension Viral upper respiratory tract infection with cough Social History Patient Tobacco Use Status: Never used Tobacco Physical Exam Vital Signs: Last Vital Signs Temp 97.2 F 12/14/22 14:12 Pulse 90 12/14/22 14:12 BP 130/70 12/14/22 14:12 Pulse Ox 97 12/14/22 14:12 Oxygen Delivery Method Room Air 12/14/22 14:12 BMI result Body Mass Index 29.8 Const General: cooperative and healthy appearing Nutritional Appearance: well nourished Orientation/consciousness: patient oriented x3 Limitations: no limitations HEENT Head: Yes normal to inspection Eyes General: appearance normal, both eyes and all related structures Neck Neck: Yes normal visual inspection Chest Chest palpation & inspection: normal palpation of entire chest wall Resp Effort & Inspection: normal respiratory effort Neuro General: patient oriented x3 Assessment & Plan Assessment & Plan (1) Viral upper respiratory tract infection with cough: Code(s): J06.9 - Acute upper respiratory infection, unspecified Plan: Antibiotics ordered. Increase fluid intake. Tylenol for aches and pains. If symptoms worsen, follow-up here for a recheck. COVID testing done. Will call with the results. Note for work given. Orders: Orders SARS-CoV2/FLU/RSV Today R43.9 - Unspecified disturbances of smell and taste Medications: New azithromycin take 500 mg today (day 1), then 250 mg for 4 days (days 2-5) PO 6 tabs 0RF Coding Level of Care Code Est Pt Level 3 (32662) Diagnoses Viral upper respiratory tract infection with cough J06.9
[2022-12-14 14:12] VITALS: BP 130/70; PULSE 90; TEMP 36.2; O2SAT 97; BMI 29.8
== END 2022-12-14 15:49 | disposition home or self-care (01) ==
PROVIDERS: PCP Internal Medicine; Visit Provider Internal Medicine
DX: J06.9 Acute upper respiratory infection, unspecified (principal)
CPT/HCPCS: 99213

== ENCOUNTER 2022-12-14 15:25 | Outpatient (REF) | payer OTHER, SELFPAY ==
[2022-12-14 20:38] LABS: Influenza A PCR NEGATIVE (Negative); Influenza B PCR NEGATIVE (Negative); Resp Syncy Virus RNA Qual PCR NEGATIVE (Negative); SARS COV2 PCR INHOUSE NEGATIVE (Negative)
== END 2022-12-14 15:26 | disposition home or self-care (01) ==
LOC: HO.LAB 15:25
PROVIDERS: Visit Provider Internal Medicine
DX: Z20.822 Contact with and (suspected) exposure to COVID-19 (principal); R43.9 Unspecified disturbances of smell and taste
CPT/HCPCS: 0241U

== ENCOUNTER 2023-01-02 13:54 | Emergency (ER) | payer OTHER, SELFPAY ==
--- NOTE | ~2023-01-02 | XR_ITS ---
EXAMINATION: XR CHEST CLINICAL INFORMATION: SOB and chest pain COMPARISON: Chest 10/26/2021 TECHNIQUE: 2 views of the chest were obtained. FINDINGS: Both lungs are fairly well-expanded and clear. Heart size and pulmonary vascularity is normal. There is moderate spondylosis dorsal spine. No aggressive lytic or sclerotic process seen. XR/XR chest 2V IMPRESSION: No acute process. No major change from chest x-ray 10/26/2021 Moderate dorsal spine spondylosis
--- NOTE | 2023-01-02 13:56 | ECG_ITS ---
Test Reason : chest pain Blood Pressure : / mmHG Vent. Rate : 073 BPM Atrial Rate : 073 BPM P-R Int : 212 ms QRS Dur : 094 ms QT Int : 370 ms P-R-T Axes : 056 038 040 degrees QTc Int : 407 ms Sinus rhythm with 1st degree A-V block Otherwise normal ECG When compared with ECG of 26-OCT-2021 14:38, DC interval has increased Referred By: Susanne Mcduffie Electronically Signed By:MEAGAN CAREY
[2023-01-02 13:59] VITALS: BP 181/94; PULSE 78; RESP 18; TEMP 37; O2SAT 99; BMI 24.5
--- NOTE | 2023-01-02 13:59 | ED_ITS ---
HPI - Chest Pain General Chief Complaint: Chest Pain Stated Complaint: Chest pain L arm pain Time Seen by Provider: 01/02/23 21:07 Source: patient Mode of arrival: ambulatory History of Present Illness HPI narrative: 82-year-old male with hypertension states that he had slight epigastric/chest pain this morning without dizziness/headache/shortness of breath or nausea and reports that his left arm was hurting little bit but does not explicitly state that there was radiation in the left arm. Patient then went home to have lunch and states that after lunch he then began experiencing stronger chest discomfort, of note he did not take his blood pressure medication until lunchtime when he ate. As per the triage note patient reported to triage that he has shortness of breath with exertion starting at lunch. He otherwise denies any fever, chills, sore throat/cough and denies any GI or symptoms. Related Data Home Medications Medication Instructions Recorded Confirmed simvastatin 40 mg tablet 40 mg PO BEDTIME 04/14/22 12/12/22 Previous Rx's Medication Instructions Recorded hydrocodone-homatropine 5 mg-1.5 5 ml PO Q6H PRN cough #60 mL 02/02/21 mg/5 mL (5 mL) oral syrup (Hycodan) lisinopril 20 1 tab PO DAILY #90 tabs 10/27/21 mg-hydrochlorothiazide 12.5 mg tablet meloxicam 15 mg tablet 15 mg PO DAILY #14 tabs 12/12/22 azithromycin 250 mg tablet See Rx Instructions PO .COMPLEX #6 12/14/22 tabs Allergies Allergy/AdvReac Type Severity Reaction Status Date / Time No Known Allergies Allergy Verified 01/02/23 14:01 Review of Systems 2 Review of Systems: Pertinent positives and negatives as stated in HPI [facility] Past Medical History Source: nursing notes reviewed Medical History Viral upper respiratory tract infection with cough Hypertension Social History Social History Alcohol intake: current Alcohol intake frequency: a few times a week Alcohol type: beer Patient Tobacco Use Status: Never used Tobacco Smoked in Last 30 Days: No Use of substances other than those prescribed or required for medical reasons: No Advance Directives: No Advance Directives Information Provided: No Physical Exam 2 Vital Signs: Vital Signs: Last Vital Signs Temp 97.8 F 01/02/23 19:46 Pulse 54 01/02/23 19:46 Resp 16 01/02/23 19:46 BP 178/81 H 01/02/23 19:46 Pulse Ox 99 01/02/23 19:46 O2 Del Method Room Air 01/02/23 19:46 BMI result Body Mass Index 24.5 VITAL SIGNS: Reviewed. GENERAL: Well developed, well nourished, in no acute distress. HEAD: Normocephalic/atraumatic EYES: PERRLA, EOMI EARS: Ext canals without abnormality, TMs non-bulging and non-erythematous NOSE: Nares patent bilateral OROPHARYNX: no oral lesions noted, posterior pharynx clear and non-erythematous without noted tonsillar enlargement/erythema/exudates NECK: Supple, no adenopathy LUNGS: Normal breath sounds. No adventitious sounds or accessory muscle use. SpO2<99> CARDIOVASCULAR: Regular rate and rhythm without noted murmurs ABDOMEN: Soft, non-tender, non-distended with bowel sounds. MUSCULOSKELETAL: No tenderness, deformities, or effusions noted on gross inspection. EXTREMITIES: No cyanosis, clubbing or edema. SKIN: Inspection of the skin reveals no rashes NEUROLOGIC: Alert and oriented x 4. Strength and sensation to light touch were grossly intact x 4. Course Course Course Narrative: RME - 62 yo male with history of HTN presents to the ER for evaluation of left sided chest pain that started today when he was getting ready for work, bending down and tying his shoes. Described as a tightness, comes and goes but increased after lunch and now has some SOB. He also reports left upper arm discomfort, no shoulder, neck or back pain. Pain is 6/10. BP 180/90, took his BP meds today. Plan: EKG, cardiac workup Medications Administered Discontinued Medications Generic Name Dose Route Start Last Admin Trade Name Finnq PRN Reason Stop Dose Admin Acetaminophen 975 mg 01/02/23 21:37 01/02/23 21:53 Acetaminophen 325 Mg Tablet PO 01/02/23 21:38 975 mg ONCE ONE Administration Amlodipine Besylate 10 mg 01/02/23 21:23 01/02/23 21:31 Amlodipine Besylate 10 Mg Tablet PO 01/02/23 21:24 10 mg ONCE ONE Administration Protocol Lidocaine/Diphenhydr/Alum/Mg/Simeth 10 ml 01/02/23 21:37 01/02/23 21:51 Mag&Al/Sim/Diphenhyd/Lidocaine 10 Ml Oral.Susp PO 01/02/23 21:38 10 ml ONCE ONE Administration Protocol Medical Decision Making Medical Decision Making [facility] Narrative: 62-year-old male with history and clinical presentation, DDX: MSK, Uncontrolled hypertension, low clinical suspicion for infectious etiology such as viral syndrome/pneumonia, gastritis/acid reflux, no abdominal pain or symptoms both in history or on clinical exam so no clinical suspicion for pancreatitis/cholecystitis. HEART SCore: 2 Reviewed all investigations and hematologic indices are negative for leukocytosis or left shift, patient is afebrile again further supporting the please code of any pneumonia or infectious etiology, there is no anemia or thrombocytopenia. Chemistry indices are grossly within normal limits without ESTEFANIA and no electrolyte or liver enzyme abnormalities, serial troponins are undetectable. I reviewed viral testing from 12/14 which was negative for any COVID or influenza and symptoms are not consistent with a viral syndrome. Chest x-ray does not have an infiltrate and otherwise my interpretation is in agreement with radiology's impression. There are no acute ischemic changes noted on EKG but there is a mild ND prolongation that is new when compared to October of 2021. Serial troponins are undetectable. Patient is otherwise discharged home with presumptive treatment for musculoskeletal/acid reflux. Blood pressure has improved and he was provided with combination analgesics and blood pressure medication while here in the emergency room. Urinalysis negative for UTI or hematuria or excessive proteinuria. Differential Diagnosis Differential Diagnoses: The differential diagnosis associated with the presentation includes Please see the discussion above Admission/Observation Consideration of admission/observation: Escalation of care including admission/observation considered Please see the discussion above Lab Data MDM Lab Attestation statement: I reviewed the patient's lab results. Please see the discussion above 01/02/23 14:11 01/02/23 14:11 Labs: Lab Results 01/02/23 01/02/23 01/02/23 Range/Units 14:11 21:19 21:33 WBC 5.8 (4.8-10.8) X10*3/uL RBC 4.54 L (4.60-5.80) X10*6/uL Hgb 14.1 (14.0-18.0) g/dl Hct 39.5 L (42.0-52.0) % MCV 87.0 (80.0-98.0) fL MCH 31.1 (27.0-33.0) pg MCHC 35.7 (31.0-36.0) g/dl RDW 12.0 (11.0-16.0) % Plt Count 201 (160-400) X10*3/uL MPV 9.4 (9.4-12.4) fL Immature Gran % (Auto) 0.2 (0.0-0.4) % Neut % (Auto) 70.3 (45-73) % Lymph % (Auto) 20.0 (20-40) % [place] % (Auto) 7.6 (2-11) % Eos % (Auto) 1.6 (0-4) % Baso % (Auto) 0.3 (0-2) % Lymph # (Auto) 1.2 (1.2-4.9) X10*3/uL [place] # (Auto) 0.4 (0.1-1.2) X10*3/uL Eos # (Auto) 0.1 (0.0-0.4) X10*3/uL Baso # (Auto) 0.0 (0.0-0.2) X10*3/uL Abs Immat Gran (auto) 0.01 (0.00-0.03) X10*3/uL Absolute Neuts (auto) 4.1 (2.0-8.3) x10*3/uL Absolute Nucleated RBC 0.000 (0.0-0.012) X10*3/uL Nucleated RBC % (auto) 0.0 (0.0-0.2) /100WBC Sodium 139 (135-145) mmol/L Potassium 4.0 (3.3-5.1) mmol/L Chloride 108 (96-108) mmol/L Carbon Dioxide 25 (22-29) mmol/L Anion Gap 10 L (12-20) BUN 15 (9-16) mg/dL Creatinine 0.93 (0.5-1.4) mg/dL Estim Creat Clear Calc 94.2 Estimated GFR > 60 Random Glucose 138 H (60-115) mg/dL Calcium 9.1 D (8.4-10.2) mg/dL Magnesium 2.0 (1.6-2.6) mg/dL Total Bilirubin 0.9 (0.0-1.0) mg/dL Direct Bilirubin 0.3 (0.0-0.5) mg/dL AST 23 (5-37) U/L ALT 23 (0-40) U/L Alkaline Phosphatase 78 (39-117) U/L Troponin I High Sens < 2.7 < 2.7 (<3.5-35.0) ng/L B-Natriuretic Peptide 31 (<100) pg/mL Total Protein 6.8 (6.5-8.0) g/dL Albumin 4.0 (3.5-5.0) g/dL Urine Color Yellow Urine Appearance Clear Urine pH 6.0 (5.0-9.0) Ur Specific [place] 1.010 (1.005-1.025) Urine Protein Negative (Neg-Trace) mg/dL Urine Glucose (UA) Negative (Negative) mg/dL Urine Ketones Negative (Negative) mg/dL Urine Blood Trace H (Negative) Urine Nitrite Negative (Negative) Ur Leukocyte Esterase Negative (Negative) Urine RBC 0-2 (0-2) /HPF Urine WBC 0-5 (0-5) /HPF Ur Squamous Epith Cells 0-2 (0-2) /HPF Urine Bacteria None Seen (None Seen) Hyaline Casts 0-2 (0-2) /LPF Independent Interpretation I performed an independent interpretation of an: EKG Interpretation: Sinus rhythm with first-degree AV block (this is new when compared to October/2021), no STEMI, QRS/QTC is within normal limits. Radiology Impression Discussion of test interpretation with radiology: I have reviewed the radiologist's reading. Radiologist Impression: Please see the discussion above External Record Review External record reviewed: Outpatient record, Prior outpatient labs and Prior outpatient radiology Chronic Conditions Patient?s care impacted by: Hypertension Discharge Plan Discharge Clinical Impression: Hypertension, uncontrolled, Acid reflux, Musculoskeletal pain Patient Disposition: Home, Self-Care Instructions: Diet for Stomach Ulcers and Gastritis (ED), Indigestion (ED), Musculoskeletal Pain (ED), DASH Eating Plan (ED), Hypertension (ED) Additional Instructions: 1. Reanudar todos los medicamentos caseros seg?n lo recetado. 2. Milagros un seguimiento con crockett proveedor de atenci?n primaria ma?wero por la ma?wero y programe sadi ying para sadi reevaluaci?n adicional del manejo ambulatorio. 3. Revise la informaci?n para controlar mejor la presi?n arterial nahum y el reflujo ?cido. Regrese a la akbar de emergencias si los s?ntomas empeoran. 1. Resume all home medications as prescribed. 2. Follow-up with your primary care provider tomorrow morning and set up an appointment for re-evaluation further outpatient management. 3. Please review the information for better high blood pressure control as well as for acid reflux. Return to the ER for any worsening symptoms. Prescriptions: No Action hydrocodone-homatropine [Hycodan] 5-1.5 mg/5 mL (5 mL) syrup 5 ml PO Q6H PRN (Reason: cough) Qty: 60 0RF lisinopril-hydrochlorothiazide 20-12.5 mg tablet 1 tab PO DAILY Qty: 90 2RF simvastatin 40 mg tablet 40 mg PO BEDTIME meloxicam 15 mg tablet 15 mg PO DAILY Qty: 14 0RF azithromycin 250 mg tablet See Rx Instructions PO .COMPLEX Qty: 6 0RF Rx Instructions: take 500 mg today (day 1), then 250 mg for 4 days (days 2-5) PO Referrals: Jovon Ramirez III, MD [Primary Care Provider] - Print Language: Yi
[2023-01-02 14:18] LABS: MANUAL DIFF FLAG NO
[2023-01-02 14:20] LABS: Basophils Percent Auto 0.3 % (0-2); Eosinophils Absolute Auto 0.1 X10*3/uL (0.0-0.4); Eosinophils Percent Auto 1.6 % (0-4); Hematocrit 39.5 % (42.0-52.0); Hemoglobin 14.1 g/dl (14.0-18.0); Imm Gran Abs Auto 0.01 X10*3/uL (0.00-0.03); Imm Gran Pct Auto 0.2 % (0.0-0.4); Lymphocytes Absolute Auto 1.2 X10*3/uL (1.2-4.9); Mean Corpuscular HGB Conc 35.7 g/dl (31.0-36.0); Mean Corpuscular Hemoglobin 31.1 pg (27.0-33.0); Mean Platelet Volume 9.4 fL (9.4-12.4); Monocytes Absolute Auto 0.4 X10*3/uL (0.1-1.2); Monocytes Percent Auto 7.6 % (2-11); Neutrophils Absolute Auto 4.1 x10*3/uL (2.0-8.3); Neutrophils Percent Auto 70.3 % (45-73); Platelet Count 201 X10*3/uL (160-400); Red Blood Count 4.54 X10*6/uL (4.60-5.80); White Blood Count 5.8 X10*3/uL (4.8-10.8)
[2023-01-02 14:38] LABS: B Type Natriuretic Peptide 31 pg/mL (<100)
[2023-01-02 14:39] LABS: Alanine Aminotransferase 23 U/L (0-40); Alkaline Phosphatase 78 U/L (39-117); Anion Gap 10 (12-20); Aspartate Amino Transferase 23 U/L (5-37); Bilirubin Direct 0.3 mg/dL (0.0-0.5); Blood Urea Nitrogen 15 mg/dL (9-16); Calcium 9.1 mg/dL (8.4-10.2); Carbon Dioxide 25 mmol/L (22-29); Chloride 108 mmol/L (96-108); Creatinine Clr Calc Pharmacy 94.2; Estimated Glomerular Filt Rate > 60; Glucose Random 138 mg/dL (60-115); Sodium 139 mmol/L (135-145); Total Protein 6.8 g/dL (6.5-8.0)
[2023-01-02 14:41] LABS: Troponin-I High Sensitivity < 2.7 ng/L (<3.5-35.0)
[2023-01-02 14:56] LABS: Bilirubin Total 0.9 mg/dL (0.0-1.0)
[2023-01-02 19:46] VITALS: BP 178/81; PULSE 54; RESP 16; TEMP 36.6; O2SAT 99
[2023-01-02 20:55] VITALS: PULSE 71
[2023-01-02] MEDS: amLODIPine Besylate 10 MG TABLET PO (21:31)
[2023-01-02 21:46] LABS: Appearance Urine Clear; Color Urine Yellow; Glucose Urine UA Negative (Negative); Leukocyte Esterase Urine Negative (Negative); Nitrite Urine Negative (Negative); UMIC TRIGGER UACC YES; Urine Blood Trace (Negative); Urine Ketones Negative (Negative); Urine Protein Negative (Neg-Trace)
[2023-01-02 21:49] LABS: Bacteria Urine None Seen (None Seen); Hyaline Casts Urine 0-2 /LPF (0-2); RBC Urine 0-2 /HPF (0-2); Squamous Epithelial Cell Urine 0-2 /HPF (0-2); WBC Urine 0-5 /HPF (0-5)
[2023-01-02 21:49] LABS: Troponin-I High Sensitivity < 2.7 ng/L (<3.5-35.0)
[2023-01-02] MEDS: Mag&Al/Sim/Diphenhyd/Lidocaine 10 ML ORAL.SUSP PO (21:51)
[2023-01-02] MEDS: Acetaminophen 325 MG TABLET 975 MG PO (21:53)
== END 2023-01-02 22:00 | disposition home or self-care (01) ==
PROVIDERS: Physician Assistant; Emergency Provider Student in an Organized Health Care Education/Training Program; PCP Internal Medicine
DX: R07.89 Other chest pain (principal); R10.13 Epigastric pain; Z79.899 Other long term (current) drug therapy
CPT/HCPCS: 36415; 71046; 80048; 80076; 81001; 83735; 83880; 84484; 85025; 93005; 99283; 99285

== ENCOUNTER 2023-01-31 08:48 | Outpatient (AMB) | payer OTHER, SELFPAY ==
--- NOTE | 2023-01-31 09:25 | MHC.OFFWIV ---
Intake Vital Signs 01/31/23 09:35 Height 5 ft 5 in Weight 183 lb 6 oz BMI 30.5 BP 162/80 H Blood Pressure Location Rt brachial Position Sitting Pulse 76 Pulse Source Pulse Oximeter Temp 98.2 F Temp Source Temporal Artery Scan Pulse Oximetry (%) 98 Oxygen Delivery Method Room Air Intake Visit Reasons: EP Cough, Congestion, Sore throat [phone] Intake Note: pt is here for c/o cough, congestion, ear pain, sore throat Patient Tobacco Use Status: Never used Tobacco Allergies No Known Allergies Allergy (Verified 01/31/23 09:26) Do you need a note to return to daycare/school/sports/work: Yes HPI HPI Comments History of Present Illness Details This is a 62-year-old male with a past medical history of hypertension hyperlipidemia presenting for evaluation of nocturnal cough and shortness of breath that he has had for the past 2 weeks. Patient has been taking Robitussin without relief of his discomfort. Patient denies having any fevers, chills, ear pain, sore throat or chest pain. Patient states everyone is sick in his home. 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 FOR[facility]LY [facility], LATER [facility] Medical History Viral upper respiratory tract infection with cough Hypertension Social History Alcohol intake: current Alcohol intake frequency: a few times a week Alcohol type: beer Patient Tobacco Use Status: Never used Tobacco Review of Systems Const Denies chills, Denies excessive sweating, Reports fatigue, Denies fever(s), Reports lethargy, Reports malaise and Denies night sweats Eyes Reports no additional complaints ENT Reports no additional complaints Card Reports no additional complaints and Reports dyspnea Resp Reports cough, Denies hemoptysis, Reports dyspnea and Denies wheezing GI Reports no additional complaints Neuro Reports no additional complaints Endo Denies excessive sweating and Reports fatigue Aller/Immun Denies wheezing Physical Exam Vital Signs: Last Vital Signs Temp 98.2 F 01/31/23 09:35 Pulse 76 01/31/23 09:35 BP 162/80 H 01/31/23 09:35 Pulse Ox 98 01/31/23 09:35 Oxygen Delivery Method Room Air 01/31/23 09:35 BMI result Body Mass Index 30.5 Const Other: Afebrile, hypertensive General: cooperative, comfortable, well developed, alert and awake; No no acute distress or ill appearing Nutritional Appearance: average body habitus Orientation/consciousness: patient oriented x3 Limitations: no limitations HEENT Head: Yes normal to inspection Ears: hearing grossly normal bilaterally, TM's normal bilaterally and EAC's normal General nose exam: Normal external nose present Face and sinus: Yes normal facial exam and Yes sinuses nontender Mouth: moist mucous membranes Teeth and gingiva: dentition normal Throat: Yes uvula midline and Yes postnasal drainage Eyes Conjunctivae: conjunctivae normal Sclerae: sclerae normal Neck Lymphatic: no lymphadenopathy noted Resp Effort & Inspection: normal respiratory effort, able to speak in complete sentences, no audible wheezes, no cough, no respiratory distress and no stridor Auscultation: clear to auscultation bilaterally Cardio Rate: regular rate Rhythm: regular rhythm Neuro General: patient oriented x3 Psych Appearance: grossly normal Mental Status: mental status grossly normal Insight: Good insight present (Psych) Judgement: Good judgement present (Psych) Results AMB Rapid Strep AMB Rapid Strep Negative Last Edit by Milton Garza CMA on 01/31/23 09:45 Results Reviewed Results Reviewed: Laboratory Last Values Strep Scn [facility] Negative 01/31/23 09:44 Rapid strep negative; reviewed with patient. Assessment & Plan Assessment & Plan (1) Viral upper respiratory tract infection with cough: Code(s): J06.9 - Acute upper respiratory infection, unspecified Plan Increase fluids daily, Tylenol or Ibuprofen as needed for discomfort. Patient will use Benadryl OTC as needed for both postnasal drip and help with his sleep. Orders: Orders AMB Rapid Strep Screen Today Z13.9 - Encounter for screening, unspecified Coding Level of Care Code Est Pt Level 3 (63322) Diagnoses Viral upper respiratory tract infection with cough J06.9 Time Spent (min) 20
[2023-01-31 09:35] VITALS: BP 162/80; PULSE 76; TEMP 36.8; O2SAT 98; BMI 30.5
== END 2023-01-31 10:09 | disposition home or self-care (01) ==
PROVIDERS: PCP Internal Medicine; Visit Provider Physician Assistant
DX: J06.9 Acute upper respiratory infection, unspecified (principal)
CPT/HCPCS: 87880; 99213

== ENCOUNTER 2023-04-12 08:42 | Outpatient (AMB) | payer OTHER, SELFPAY ==
[2023-04-12 08:47] VITALS: BP 160/90; PULSE 76; TEMP 36.6; O2SAT 98; BMI 30.9
--- NOTE | 2023-04-12 08:47 | MHC.OFFWIV ---
Intake Vital Signs 04/12/23 08:47 Height 5 ft 5 in Weight 186 lb BMI 30.9 BP 160/90 H Blood Pressure Location Lt brachial Position Sitting Pulse 76 Pulse Source Pulse Oximeter Temp 97.8 F Temp Source Temporal Artery Scan Pulse Oximetry (%) 98 Oxygen Delivery Method Room Air Intake Visit Reasons: EP Cough, congestion, mucus (masked) Intake Note: pt is here today for cough congestion mucus started 04/09 Patient Tobacco Use Status: Never used Tobacco Allergies No Known Allergies Allergy (Verified 04/12/23 09:21) Medication List - Last Reconciled 04/12/23 by MARIBEL Woodward-GARRET lisinopril-hydrochlorothiazide 20-12.5 mg 1 tab PO DAILY simvastatin 40 mg PO BEDTIME Do you need a note to return to daycare/school/sports/work: Yes HPI HPI Comments History of Present Illness Details here today w flu like sx started 04/09/23 sx include: cough,fever,sore throat worse on right side, right sided ear pain, body aches exposed to sick family contacts recently w similiar sx used apap at home to help w fever UTD on vaccines Denies recent travel, no at home covid test, chest pain, sob. PFSH Medical History (Updated 04/12/23 @ 09:21 by MARIBEL Woodward-GARRET) Flu-like symptoms Viral upper respiratory tract infection with cough Hypertension Social History Alcohol intake: current Alcohol intake frequency: a few times a week Alcohol type: beer Patient Tobacco Use Status: Never used Tobacco Review of Systems Const All systems reviewed & are unremarkable except as noted in HPI and below Physical Exam Vital Signs: Last Vital Signs Temp 97.8 F 04/12/23 08:47 Pulse 76 04/12/23 08:47 BP 160/90 H 04/12/23 08:47 Pulse Ox 98 04/12/23 08:47 Oxygen Delivery Method Room Air 04/12/23 08:47 BMI result Body Mass Index 30.9 Const Other: awake alert mildly ill appearing, NAD conjunctiva clear bilat, TM intact, serous effusions bilat Nares/turbinates patent pharynx mild erythema, no exudate,+ PND RRR LS Ins/exp wheeze throughout worse on RLL and RML. Coarse cough noted during exam Assessment & Plan Assessment & Plan (1) Flu-like symptoms: Code(s): R68.89 - Other general symptoms and signs Plan: . (2) Wheezing on auscultation: Code(s): R06.2 - Wheezing Plan: . Orders: Orders SARS-CoV2/FLU/RSV Today R06.2 - Wheezing, R68.89 - Other general symptoms and signs XR chest 2V Today R06.2 - Wheezing, R68.89 - Other general symptoms and signs Medications: New benzonatate 100 mg PO TID 10 days PRN 30 caps 1RF cough albuterol sulfate 90 mcg/actuation 2 puffs inhalation Q4-6H 30 days PRN 8.5 grams 0RF shortness of breath or wheezing Patient Instructions: viral swab today, if flu + recommend sending in tamiflu. otherwise no tx for + viral swab. if xray +, will need to be tx as appropriate. until then, supportive care using apap and RX meds sent to pharm. note work provided. Coding Level of Care Code Est Pt Level 4 (95555) Diagnoses Flu-like symptoms R68.89 Wheezing on auscultation R06.2
== END 2023-04-12 09:35 | disposition home or self-care (01) ==
PROVIDERS: PCP Internal Medicine; Visit Provider Nurse Practitioner Family
DX: R68.89 Other general symptoms and signs (principal); R06.2 Wheezing
CPT/HCPCS: 99214

== ENCOUNTER 2023-04-12 09:25 | Outpatient (REF) | payer OTHER, SELFPAY ==
--- NOTE | ~2023-04-12 | XR_ITS ---
EXAMINATION: XR CHEST CLINICAL INFORMATION: Wheezing COMPARISON: None available. TECHNIQUE: 2 views of the chest were obtained. FINDINGS: No significant abnormality is noted involving the heart, lungs, mediastinum, or soft tissues. Mild degenerative changes. XR/XR chest 2V IMPRESSION: No acute cardiopulmonary disease.
[2023-04-12 12:56] LABS: Influenza A PCR NEGATIVE (Negative); Influenza B PCR NEGATIVE (Negative); Resp Syncy Virus RNA Qual PCR NEGATIVE (Negative); SARS COV2 PCR INHOUSE POSITIVE (Negative)
== END 2023-04-12 09:26 | disposition home or self-care (01) ==
LOC: HO.HMGCX 09:25
PROVIDERS: PCP Internal Medicine; Visit Provider Nurse Practitioner Family
DX: R06.2 Wheezing (principal); R68.89 Other general symptoms and signs; Z11.52 Encounter for screening for COVID-19
CPT/HCPCS: 0241U; 71046

== ENCOUNTER 2023-05-31 12:13 | Outpatient (AMB) | payer OTHER, SELFPAY ==
[2023-05-31 13:46] VITALS: BP 140/72; PULSE 96; TEMP 37.3; O2SAT 98; BMI 30.8
--- NOTE | 2023-05-31 13:46 | AM.OFFWIN_ITS ---
Intake Vital Signs 05/31/23 13:46 Height 5 ft 5 in Weight 185 lb BMI 30.8 BP 140/72 H Blood Pressure Location Lt brachial Position Sitting Pulse 96 Pulse Source Pulse Oximeter Temp 99.1 F Temp Source Temporal Artery Scan Pulse Oximetry (%) 98 Oxygen Delivery Method Room Air Intake Visit Reasons: EP Cough, Sinus Pressure [phone] Intake Note: pt is here today for cough sinus pressure started yesterday Patient Tobacco Use Status: Never used Tobacco Allergies No Known Allergies Allergy (Verified 05/31/23 14:17) Medication List - Last Reconciled 05/31/23 by Vaibhav Rodríguez MD albuterol sulfate 90 mcg/actuation 2 puffs inhalation Q4-6H PRN 30 days Do you need a note to return to daycare/school/sports/work: Yes HPI EP Cough, Sinus Pressure [phone] HPI Details Patient presents for a sick visit. Reporting symptoms of sinus congestion, sore throat and difficulty swallowing. Low-grade fever. No family member is sick. No recent travel. Patient reports symptoms of malaise and fat igue. FORMERLY [facility] Medical History (Updated 04/12/23 @ 09:21 by Silvia Tatum, [facility]) Flu-like symptoms Viral upper respiratory tract infection with cough Hypertension Social History Alcohol intake: current Alcohol intake frequency: a few times a week Alcohol type: beer Patient Tobacco Use Status: Never used Tobacco Physical Exam Vital Signs: Last Vital Signs Temp 99.1 F 05/31/23 13:46 Pulse 96 05/31/23 13:46 BP 140/72 H 05/31/23 13:46 Pulse Ox 98 05/31/23 13:46 Oxygen Delivery Method Room Air 05/31/23 13:46 BMI result Body Mass Index 30.8 Const General: cooperative and healthy appearing Nutritional Appearance: well nourished Orientation/consciousness: patient oriented x3 Limitations: no limitations HEENT Head: Yes normal to inspection Eyes General: appearance normal, both eyes and all related structures Neck Neck: Yes normal visual inspection Chest Chest palpation & inspection: normal palpation of entire chest wall Resp Effort & Inspection: normal respiratory effort Neuro General: patient oriented x3 Assessment & Plan Assessment & Plan (1) Flu-like symptoms: Code(s): R68.89 - Other general symptoms and signs Plan: Tamiflu called in. If symptoms do not improve to follow-up here. Orders: Orders SARS-CoV2/FLU/RSV Today R43.9 - Unspecified disturbances of smell and taste Coding Level of Care Code Est Pt Level 3 (20443) Diagnoses Flu-like symptoms R68.89
== END 2023-05-31 14:37 | disposition home or self-care (01) ==
PROVIDERS: PCP Internal Medicine; Visit Provider Internal Medicine
DX: R68.89 Other general symptoms and signs (principal)
CPT/HCPCS: 99213

== ENCOUNTER 2023-05-31 16:12 | Outpatient (REF) | payer OTHER, SELFPAY ==
[2023-05-31 17:03] LABS: Influenza A PCR POSITIVE (Negative); Influenza B PCR NEGATIVE (Negative); Resp Syncy Virus RNA Qual PCR NEGATIVE (Negative); SARS COV2 PCR INHOUSE NEGATIVE (Negative)
== END 2023-05-31 16:13 | disposition home or self-care (01) ==
LOC: HO.HMGCLNP 16:12
PROVIDERS: Visit Provider Internal Medicine
DX: Z11.52 Encounter for screening for COVID-19 (principal); Z20.822 Contact with and (suspected) exposure to COVID-19; R43.9 Unspecified disturbances of smell and taste
CPT/HCPCS: 0241U

== ENCOUNTER → 2023-06-30 10:00 | Outpatient (BNVA) | payer OTHER, SELFPAY | PROVIDERS: PCP Internal Medicine; Visit Provider Physician Assistant | DX: M25.511 Pain in right shoulder (principal); M25.512 Pain in left shoulder; M25.522 Pain in left elbow; M54.50 Low back pain, unspecified; M25.552 Pain in left hip; Z91.81 History of falling | CPT/HCPCS: 99203 ==

== ENCOUNTER → 2023-07-05 12:58 | Outpatient (BNVA) | payer OTHER, SELFPAY | PROVIDERS: PCP Internal Medicine; Visit Provider Physician Assistant | DX: M25.511 Pain in right shoulder (principal); M25.512 Pain in left shoulder; M25.522 Pain in left elbow; M25.552 Pain in left hip; M54.50 Low back pain, unspecified; Z91.81 History of falling | CPT/HCPCS: 99213 ==

== ENCOUNTER 2023-12-11 09:26 | Outpatient (AMB) | payer BC, SELFPAY ==
--- NOTE | 2023-12-11 09:35 | MHC.OFFWIV ---
Intake Vital Signs 12/11/23 09:36 Height 5 ft 5 in Weight 184 lb BMI 30.6 BP 122/76 Blood Pressure Location Lt brachial Position Sitting Pulse 68 Pulse Source Pulse Oximeter Temp 99.4 F Temp Source Oral Pulse Oximetry (%) 98 Oxygen Delivery Method Room Air Intake Visit Reasons: EP Sinus pressure, cold symptoms Intake Note: pt c/o sinus pressure and cold symptoms. Started Monday Patient Tobacco Use Status: Never used Tobacco Allergies No Known Allergies Allergy (Verified 12/11/23 09:35) Do you need a note to return to daycare/school/sports/work: Yes HPI HPI Comments History of Present Illness Details Patient is a 63-year-old male complaining of 3 days of sinus pain, head pressure, headache, head congestion, sore throat, shortness and breath, subjective fevers and chills. He denies any sick contacts. He states he did not test for COVID at home. [facility] Medical History (Updated 12/11/23 @ 10:16 by Ana Brice PA-C) Flu-like symptoms Viral upper respiratory tract infection with cough Hypertension Social History Alcohol intake: current Alcohol intake frequency: a few times a week Alcohol type: beer Patient Tobacco Use Status: Never used Tobacco Review of Systems Const All systems reviewed & are unremarkable except as noted in HPI and below Physical Exam Vital Signs: Last Vital Signs Temp 99.4 F 12/11/23 09:36 Pulse 68 12/11/23 09:36 BP 122/76 12/11/23 09:36 Pulse Ox 98 12/11/23 09:36 Oxygen Delivery Method Room Air 12/11/23 09:36 BMI result Body Mass Index 30.6 Const General: cooperative, healthy appearing, comfortable and no acute distress Orientation/consciousness: patient oriented x3 Limitations: no limitations HEENT Head: Yes normal to inspection Ears: hearing grossly normal bilaterally, external ears normal and TM's normal bilaterally General nose exam: Normal external nose present, Normal nares present and No nasal discharge present Face and sinus: Yes normal facial exam and Yes sinus tenderness Mouth: Normal oral and palatal mucosa present and moist mucous membranes Throat: Yes tonsils normal, Yes uvula midline and Yes posterior oropharynx abnormal (Erythema) Eyes General: appearance normal, both eyes and all related structures Neck Neck: Yes normal visual inspection Resp Effort & Inspection: normal respiratory effort, able to speak in complete sentences, Actively coughing, no respiratory distress, not tachypneic, no tripod positioning and no use of accessory muscles Auscultation: clear to auscultation bilaterally Cardio Rate: regular rate Rhythm: regular rhythm Heart sounds: normal S1 and S2 Skin General skin exam: no rashes or lesions noted Neuro General: patient oriented x3 Extrem General: Yes normal to inspection and Yes no clubbing, cyanosis or edema Assessment & Plan Assessment & Plan (1) Sinusitis, acute: Code(s): J01.90 - Acute sinusitis, unspecified Qualifiers: Sinusitis location: frontal Recurrence: non-recurrent Qualified Code(s): J01.10 - Acute frontal sinusitis, unspecified Plan: Recommended treating his symptoms with vtot-spf-rdcsmon medications. Also treating with prednisone 20 mg for 5 days. Sent flu COVID and RSV testing Plan See above Medications: New prednisone 20 mg PO DAILY 5 tabs 0RF Coding Level of Care Code New Pt Level 3 (75641) Diagnoses Acute non-recurrent frontal sinusitis J01.10 Sinusitis location: frontal Recurrence: non-recurrent
[2023-12-11 09:36] VITALS: BP 122/76; PULSE 68; TEMP 37.4; O2SAT 98; BMI 30.6
== END 2023-12-11 10:12 | disposition home or self-care (01) ==
PROVIDERS: PCP Internal Medicine; Visit Provider Physician Assistant
DX: J01.10 Acute frontal sinusitis, unspecified (principal)
CPT/HCPCS: 99203

== ENCOUNTER 2023-12-11 10:20 | Outpatient (REF) | payer MEDICARE, OTHER, SELFPAY ==
[2023-12-11 14:07] LABS: Influenza A PCR NEGATIVE (Negative); Influenza B PCR NEGATIVE (Negative); Resp Syncy Virus RNA Qual PCR NEGATIVE (Negative); SARS COV2 PCR INHOUSE NEGATIVE (Negative)
== END 2023-12-11 10:21 | disposition home or self-care (01) ==
LOC: HO.LAB 10:20
PROVIDERS: Visit Provider Physician Assistant
DX: J06.9 Acute upper respiratory infection, unspecified (principal)
CPT/HCPCS: 0241U

== ENCOUNTER 2024-10-03 22:29 | Observation (INO) | payer BC, SELFPAY ==
[2024-10-03 22:34] VITALS: BP 148/79; PULSE 86; RESP 16; TEMP 36.6; O2SAT 93; BMI 31.0
[2024-10-03 22:42] VITALS: BP 168/94; PULSE 86; RESP 20; TEMP 37.3; O2SAT 97
[2024-10-03] MEDS: Famotidine/PF 20 MG/2 ML VIAL IVPUSH (22:52)
[2024-10-03] MEDS: diphenhydrAMINE HCL 50 MG/ML VIAL IVPUSH (22:52)
[2024-10-03] MEDS: dexAMETHasone sod phosphate 10 MG/ML VIAL IVPUSH (22:53)
[2024-10-03] MEDS: 0.9 % Sodium Chloride 1,000 ML 999 ML IVCONT (22:56)
--- NOTE | 2024-10-03 22:56 | ED.ALLEREA ---
HPI - Allergic Reaction General Chief complaint: Allergic Reaction Stated complaint: allergic reaction; throat closing Time Seen by Provider: 10/03/24 22:40 Source: patient Mode of arrival: ambulatory Limitations: no limitations History of Present Illness ED Provider: Dr. Mira Singh HPI narrative: Patient comes to the emergency room complaining of throat tightness, foreign body sensation in his throat. Patient also noted that his lower lip on the left side is swollen. Patient states that to his knowledge he has no allergies. Patient states that earlier today he was eating shrimp was but he has no known allergies to seafood. However, patient takes hydrochlorothiazide/lisinopril for several years. Patient denies any hives, no itching, no difficulty breathing Related Data Home Medications ?Medication ?Instructions ?Recorded ?Confirmed simvastatin 40 mg tablet 40 mg PO BEDTIME 12/11/23 Previous Rx's ?Medication ?Instructions ?Recorded prednisone 20 mg tablet 20 mg PO DAILY #5 tabs 12/11/23 Allergies Allergy/AdvReac Type Severity Reaction Status Date / Time No Known Allergies Allergy Verified 10/03/24 22:36 Review of Systems Review of Systems: Constitutional : No Weight loss, No Fever, No Chills, No Night Sweats, No Fatigue, No Malaise ENT/Mouth : No Hearing loss, No Ear Pain, No Nasal Congestion, No Sinus Pain, No Hoarseness, No sore throat, No Rhinorrhea, complaining of swollen difficulty and foreign body sensation in the throat Eyes: No Eye Pain, No Swelling, No Redness, No Foreign Body, No Discharge, No Vision Changes Cardiovascular : No Chest Pain, No SOB, No Dyspnea on Exertion, No Orthopnea, No Edema, No Palpitations Respiratory : No Cough, No Sputum, No Wheezing, No Smoke Exposure, No Dyspnea Gastrointestinal : No Nausea, No Vomiting, No Diarrhea, No Constipation, No abdominal Pain, No Hematochezia, No Melena Genitourinary : no irregular bleeding, No Dysuria, No Urinary Frequency, No Hematuria, No Urinary Incontinence, No Urgency, No Flank Pain, No Urinary Flow Changes, No Hesitancy Musculoskeletal : No joint pain, No Myalgias, No Joint Swelling Skin : No Skin Lesions, No rash Neuro : No Weakness, No Numbness, No Paresthesias, No Loss of Consciousness, No Dizziness, No Headache Psych : No Anxiety/Panic, No Depression, No SI/HI/AH/VH, No Social Issues, Heme/Lymph: No Bruising, No Bleeding,No Lymphadenopathy Endocrine : No Polyuria, No Polydipsia, No Temperature Intolerance [facility] Past Medical History Medical History Flu-like symptoms Viral upper respiratory tract infection with cough Hypertension Social History Social History Alcohol intake: current Alcohol intake frequency: a few times a week Alcohol type: beer Patient Tobacco Use Status: Never used Tobacco Advance Directives: No Advance Directives Information Provided: Yes Physical Exam ED Vital Signs: Vital Signs - 24 hr 10/03/24 22:34 10/03/24 22:42 Temperature 97.8 F 99.1 F Pulse Rate 86 86 Respiratory Rate 16 20 Blood Pressure 148/79 H 168/94 H Pulse Oximetry 93 97 Oxygen Delivery Method Room Air Room Air BMI result Body Mass Index 31.0 Const Other: Appearance: Alert. Oriented X3. No acute distress. Eyes: Pupils equal, round and reactive to light. ENT: Patient's left lip on the left is swollen. Normal tongue. Uvula is edematous, midline Neck: Normal inspection. Neck supple. No lymph nodes noted. No crepitus CVS: Normal heart rate and rhythm. Pulses normal. Normal S1 and S2 Respiratory: No respiratory distress. Breath sounds normal. No Wheezing. No rales Abdomen: Soft and nontender. No rigidity. No distention. Skin: Skin warm and dry. Normal skin color. Normal skin turgor. Extremities: No lower extremity edema. No Lacerations. No Rash Neuro: Oriented X 3. No motor deficit. No sensory deficit. Moving all extremities. No slurred speech. CN 2 through 12 grossly intact Psych: calm, cooperative, normal affect Course Course Course Narrative: Patient complaining of feeling that his throat is closing up, foreign body sensation in the throat. Patient is on lisinopril Patient receiving IV fluids, IV Pepcid, Solu-Medrol, diphenhydramine, dexamethasone Patient's vitals are stable, patient talking in full sentences Medications Administered Discontinued Medications Generic Name Dose Route Start Last Admin Trade Name Freq PRN Reason Stop Dose Admin Dexamethasone Sodium Phosphate 10 mg 10/03/24 22:47 10/03/24 22:53 Dexamethasone Sod Phosphate 10 Mg/Ml Vial IVPUSH 10/03/24 22:48 10 mg ONCE ONE Administration Diphenhydramine HCl 50 mg 10/03/24 22:44 10/03/24 22:52 Diphenhydramine Hcl 50 Mg/Ml Vial IVPUSH 10/03/24 22:45 50 mg ONCE ONE Administration Famotidine 20 mg 10/03/24 22:44 10/03/24 22:52 Famotidine/Pf 20 Mg/2 Ml Vial IVPUSH 10/03/24 22:45 20 mg ONCE ONE Administration Sodium Chloride 1,000 mls @ 999 mls/hr 10/03/24 22:44 10/03/24 22:56 Ns IVCONT 10/03/24 23:44 999 mls/hr .Q1H1M ONE Administration Methylprednisolone Sodium Succinate 125 mg 10/03/24 22:44 10/03/24 22:52 Methylprednisolone Sod Succ 125 Mg Vial IVPUSH 10/03/24 22:45 125 mg ONCE ONE Administration Medical Decision Making Medical Decision Making MDM Narrative: My interpretation of labs: No significant abnormality in patient's hematology and chemistry. After the above-mentioned medications, patient's uvula and lip has significantly decreased in size, patient denies any worsening symptoms, states that he does feel better but still a bit swollen. Overall, patient had improvement. I discussed the patient with Dr. Wellington from the Medicine team, patient being admitted Differential Diagnosis Differential Diagnoses: The differential diagnosis associated with the presentation includes (Angioedema due to medication, allergic reaction, anaphylaxis) Admission/Observation Consideration of admission/observation: Escalation of care including admission/observation considered Consult Healthcare Provider Management of the patient was discussed with: Hospitalist Lab Data [facility] Lab Attestation statement: I reviewed the patient's lab results. 10/03/24 22:55 10/03/24 22:55 Labs: Lab Results 10/03/24 Range/Units 22:55 WBC 6.1 (4.8-10.8) X10*3/uL RBC 4.34 L (4.60-5.80) X10*6/uL Hgb 13.4 L (14.0-18.0) g/dl Hct 37.5 L (42.0-52.0) % MCV 86.4 (80.0-98.0) fL MCH 30.9 (27.0-33.0) pg MCHC 35.7 (31.0-36.0) g/dl RDW 12.1 (11.0-16.0) % Plt Count 201 (160-400) X10*3/uL MPV 9.5 (9.4-12.4) fL Immature Gran % (Auto) 0.3 (0.0-0.4) % Neut % (Auto) 63.1 (45-73) % Lymph % (Auto) 25.9 (20-40) % [place] % (Auto) 8.4 (2-11) % Eos % (Auto) 2.0 (0-4) % Baso % (Auto) 0.3 (0-2) % Lymph # (Auto) 1.6 (1.2-4.9) X10*3/uL [place] # (Auto) 0.5 (0.1-1.2) X10*3/uL Eos # (Auto) 0.1 (0.0-0.4) X10*3/uL Baso # (Auto) 0.0 (0.0-0.2) X10*3/uL Abs Immat Gran (auto) 0.02 (0.00-0.03) X10*3/uL Absolute Neuts (auto) 3.8 (2.0-8.3) x10*3/uL Absolute Nucleated RBC 0.000 (0.0-0.012) X10*3/uL Nucleated RBC % (auto) 0.0 (0.0-0.2) /100WBC Sodium 141 (135-145) mmol/L Potassium 3.8 (3.3-5.1) mmol/L Chloride 106 (96-108) mmol/L Carbon Dioxide 25 (22-29) mmol/L Anion Gap 14 (12-20) BUN 31 H (9-16) mg/dL Creatinine 1.22 (0.5-1.4) mg/dL Estim Creat Clear Calc 62.7 Estimated GFR > 60 Random Glucose 111 (60-115) mg/dL Calcium 8.9 (8.4-10.2) mg/dL Total Bilirubin 0.7 (0.0-1.0) mg/dL AST 22 (5-37) U/L ALT 28 (0-40) U/L Alkaline Phosphatase 59 (39-117) U/L Total Protein 6.7 (6.5-8.0) g/dL Albumin 4.4 (3.5-5.0) g/dL Critical Care Time Critical Care Time Critical Care Time: Yes Total Critical Care Time: 60 Attestation: I have personally provided critical care time. Time includes review of lab data, radiology results, discussion with consultants, and monitoring for potential decompensation. Intervention performed as documented. Discharge Plan Discharge Clinical Impression: Angioedema Patient Disposition: Admitted As Inpatient Print Language: Belarusian
[2024-10-03 23:00] LABS: Basophils Percent Auto 0.3 % (0-2); Eosinophils Absolute Auto 0.1 X10*3/uL (0.0-0.4); Hematocrit 37.5 % (42.0-52.0); Hemoglobin 13.4 g/dl (14.0-18.0); Imm Gran Abs Auto 0.02 X10*3/uL (0.00-0.03); Imm Gran Pct Auto 0.3 % (0.0-0.4); Lymphocytes Absolute Auto 1.6 X10*3/uL (1.2-4.9); Lymphocytes Percent Auto 25.9 % (20-40); MANUAL DIFF FLAG NO; Mean Corpuscular HGB Conc 35.7 g/dl (31.0-36.0); Mean Corpuscular Hemoglobin 30.9 pg (27.0-33.0); Mean Corpuscular Volume 86.4 fL (80.0-98.0); Mean Platelet Volume 9.5 fL (9.4-12.4); Monocytes Absolute Auto 0.5 X10*3/uL (0.1-1.2); Monocytes Percent Auto 8.4 % (2-11); Neutrophils Absolute Auto 3.8 x10*3/uL (2.0-8.3); Neutrophils Percent Auto 63.1 % (45-73); Platelet Count 201 X10*3/uL (160-400); Red Blood Count 4.34 X10*6/uL (4.60-5.80); Red Cell Distribution Width 12.1 % (11.0-16.0); White Blood Count 6.1 X10*3/uL (4.8-10.8)
[2024-10-03 23:15] LABS: Alanine Aminotransferase 28 U/L (0-40); Albumin Level 4.4 g/dL (3.5-5.0); Alkaline Phosphatase 59 U/L (39-117); Anion Gap 14 (12-20); Aspartate Amino Transferase 22 U/L (5-37); Bilirubin Total 0.7 mg/dL (0.0-1.0); Blood Urea Nitrogen 31 mg/dL (9-16); Calcium 8.9 mg/dL (8.4-10.2); Carbon Dioxide 25 mmol/L (22-29); Chloride 106 mmol/L (96-108); Creatinine Clr Calc Pharmacy 62.7; Estimated Glomerular Filt Rate > 60; Glucose Random 111 mg/dL (60-115); Potassium 3.8 mmol/L (3.3-5.1); Sodium 141 mmol/L (135-145); Total Protein 6.7 g/dL (6.5-8.0)
--- OUTSIDE RECORDS SUMMARY | 2024-10-03 23:32 | XMS_ITS | Clinical Summary ---
Author Organization [address] Address [address] [place] [phone] Phone Care Team Providers Care Executive Chairman Name Role Phone Jovon Ramirez MD Primary Care Provider [phone] Allergies No known active allergies Medications valACYclovir (VALTREX) 1 gram tablet Take 2 tablets (2,000 mg total) by mouth 2 (two) times a day. 360 tablet 04/04/2024 Active simvastatin (ZOCOR) 40 mg tablet TAKE ONE TABLET BY MOUTH DAILY AT BEDTIME 90 tablet 08/27/2024 Active lisinopril-hydr oCHLOROthiazide (PRINZIDE,ZESTO RETIC) 20-12.5 mg per tablet TAKE ONE TABLET BY MOUTH EVERY DAY 90 tablet 08/27/2024 Active Active Problems Problem Noted Date Diagnosed Date Hyperlipidemia 05/08/2020 Overview (04/04/2024): ASCVD Score 13.8% Low back pain 08/12/2019 Overview (04/04/2024): After lifting a toilet at work back in Feb 2019 Hypertension 08/09/2019 Abnormal MRI, thoracic spine 06/02/2019 Overview (04/04/2024): Mri Of Thoracic Spine W/wo Contrast 04/15/2019 - Bright T1 and T2 low fat- suppressed signal rounded lesion within the T10 with significant amount surrounding edema and enhancement as well as some perivertebral enhancement. Major differential diagnosis should include aggressive hemangioma, infectious process such as osteomyelitis as well as metastasis and infiltrative bone marrow disorders. Clinical assessment is recommended. PET scan may be considered for further assessment. GERD (gastroesophageal reflux disease) 1 Calculus of kidney 08/09/2005 Encounters Date Type Department Care Team Description 08/20/2024 Telephone Adult Medicine [address] [phone] Jovon Ramirez MD Referral 08/20/2024 Telephone Adult Medicine [address] [phone] Jovon Ramirez MD 07/12/2024 3:30 PM EDT Office Visit Adult Medicine [address] [phone] Jovon Ramirez MD Primary hypertension (Primary Dx); Pure hypercholesterolemia; Encounter for long-term (current) use of medications; Erectile dysfunction, unspecified erectile dysfunction type; Screening for malignant neoplasm of prostate from Last 3 Months Immunizations Name Administration Dates Next Due H1N1 Inj Preservative Free 06/05/2009 Influenza Quadravalent, MDCK , 0.5ml, preservative free (Flucelvax) 6mo and older 01/03/2023,04/01/2020 Influenza trivalent, MDCK, 0 .5mL, preservative free (Flucelvax) 6mo and older 07/12/2024 Tdap Tetanus diptheria acell ular pertussis (Boostrix; Adacel) 7yo and older 10/24/2012 Surgical History Surgery Date Site/Laterality Comments COLONOSCOPY 06/19/12 PROCEDURE: HISTORICAL COLONOSCOPY; COMMENT: normal; repeat in ten yrs Medical History Medical History Date Comments Calculus of kidney DX:Calculus o f kidney Esophageal reflux DX:Esophageal reflux Left lateral epicondylitis 04/01/2020 DX:Le ft lateral epicondylitis Hypertension 08/09/2019 Family History Medical History Relation Name Comments Arthritis Mother Diabetes Mother Blindness Neg Hx Cataracts Neg Hx Glaucoma Neg Hx Macular degeneration Neg Hx Strabismus Neg Hx Relation Name Status Comments Mother Social History Tobacco Use Types Packs/Day Years Used Date Smoking Tobacco: Never Smokeless Tobacco: Never Tobacco Cessation:Counseling Given: Not Answered Alcohol Use Standard Drinks/Week Comments Yes 0 (1 standard drink = 0.6 oz pur e alcohol) Sex and Gender Information Value Date Recorded Sex Assigned at Not on file Legal Sex Male 4:48 AM EST Gender Identity Not on file Sexual Orientation Not on file Obstetrics History Last Filed Vital Signs Vital Sign Reading Time Taken Comments Blood Pressure 151/84 07/12/2024 3:35 PM EDT Pulse 89 07/12/2024 3:35 PM EDT Temperature 36.3 C (97.3 F) 07/12/2024 3:35 PM EDT Respiratory Rate 16 07/12/2024 3:35 PM EDT Oxygen Saturation 97% 07/12/2024 3:35 PM EDT Inhaled Oxygen Concentration - - Weight 86.8 kg (191 lb 6.4 oz) 07/12/2024 3:35 P M EDT Height 167.6 cm (5' 6 ) 07/12/2024 3:35 PM EDT Body Mass Index 30.89 07/12/2024 3:35 PM EDT Plan of Treatment Upcoming Encounters Date Type Department Care Team (Late st Contact Info) Description 01/21/2025 3:30 PM EDT Office Visit Adult Medicine [facility] [address] [place] [phone] Jovon Ramirez MD [address] [place] [phone] Health Maintenance Due Date Last Done Comments Pneumococcal Vaccine: 50+ Years (1 of 1 - PCV) 11/19/2011 Zoster Vaccines (1 of 2) 11/19/2011 Colorectal Cancer Screening: Colonoscopy 03/26/2022 Depression Screening 03/26/2022 HIV Screening 03/26/2022 Social Influencers of Health Screening 03/26/2022 DTaP,Tdap,and Td Vaccines (2 - Td or Tdap) 10/24/2022 10/24/2012 COVID-19 Vaccine ( season) 2023 04/06/2021, 07/28/2020, 06/30/2020 Hypertension/CHF/CAD Annual BMP Blood Test 07/12/2025 07/12/2024, 01/03/2023 Cholesterol Screening (Lipid Panel) 07/17/2029 07/17/2024, 01/03/2023 RSV Immunization Adult Patients (1 - 1-dose 75+ series) 2036 Hepatitis B Vaccines Aged Out 02/12/2016, 09/11/2015, 08/13/2015 No longer eligible based on patient's age to complete this topic Hepatitis C Screening Completed 05/07/2023 Influenza Vaccine Completed 07/12/2024, , 04/01/2020, Additional history exists HIB Vaccines Aged Out No longer eligi ble based on patient's age to complete this topic HPV Vaccines Aged Out No longer eligi ble based on patient's age to complete this topic Hepatitis A Vaccines Aged Out No long er eligible based on patient's age to complete this topic IPV Vaccines Aged Out No longer eligi ble based on patient's age to complete this topic MMR Vaccines Aged Out No longer eligi ble based on patient's age to complete this topic Meningococcal ACWY Vaccine Aged Out N o longer eligible based on patient's age to complete this topic Meningococcal B Vaccine Aged Out No l onger eligible based on patient's age to complete this topic Pneumococcal Vaccine: Pediatrics (0 to 5 Years) and At-Risk Patients (6 to 64 Years) Aged Out No longer eligible based on patient's age to complete this topic RSV Immunization Patients Under 20 months Aged Out No longer eligible based on patient's age to complete this topic Varicella Vaccines Aged Out No longer eligible based on patient's age to complete this topic Procedures Procedure Name Priority Date/Time Associated Diagnosis Comments LIPID PANEL WITH REFLEX TO DIRECT LDL Routine 07/17/2024 10:10 AM EDT Erectile dysfunction, unspecified erectile dysfunction type Screening for malignant neoplasm of prostate Primary hypertension Encounter for long-term (current) use of medications Pure hypercholesterolemia COMPREHENSIVE METABOLIC PANEL Routine 07/12/2024 4:25 PM EDT Erectile dysfunction, unspecified erectile dysfunction type Screening for malignant neoplasm of prostate Primary hypertension Encounter for long-term (current) use of medications Pure hypercholesterolemia PROSTATE SPECIFIC ANTIGEN SCREEN Routine 07/12/2024 4:25 PM EDT Erectile dysfunction, unspecified erectile dysfunction type Screening for malignant neoplasm of prostate Primary hypertension Encounter for long-term (current) use of medications Pure hypercholesterolemia TESTOSTERONE, TOTAL Routine 07/12/2024 4 :25 PM EDT Erectile dysfunction, unspecified erectile dysfunction type Screening for malignant neoplasm of prostate Primary hypertension Encounter for long-term (current) use of medications Pure hypercholesterolemia HEPATITIS C SCREENING Routine 05/07/2023 from Last 3 Months or Most Recently Relevant to Health Maintenance Results * (ABNORMAL) Lipid panel with reflex to direct LDL (07/17/2024 10:10 AM EDT) Cholesterol 129 0 - 200 mg/dL LAB CHEMISTRY METHOD 07/17/2024 7:23 PM EDT [facility] Triglycerides 163(H) 0 - 150 mg/dL LAB CHEMISTRY METHOD 07/17/2024 7:23 PM EDT [facility] HDL 48 >=40 mg/dL LAB CHEMISTRY METHOD 07/17/2024 7:23 PM EDT [facility] LDL Calculated 48 0 - 100 mg/dL LAB CHEMISTRY METHOD 07/17/2024 7:23 PM EDT [facility] VLDL Cholesterol William 32.6 mg/dL LAB CHEMISTRY METHOD 07/17/2024 7:23 PM EDT [facility] Non HDL Chol. (LDL+VLDL) 81 <145 mg/dL LAB CHEMISTRY METHOD 07/17/2024 7:23 PM EDT [facility] Chol/HDL Ratio 2.7 0.0 - 4.4 LAB CHEMISTRY METHOD 07/17/2024 7:23 PM T [facility] Blood Venous blood specimen / Unknown Venipuncture / Unknown 07/17/2024 10:10 AM EDT 07/17/2024 10:10 AM EDT us Jovon Ramirez MD LAB BLOOD ORDERABLES Final Resu lt [facility] [address] [place] [address], * Prostate specific antigen screen (07/12/2024 4:25 PM EDT) PSA 0.88 0.00 - 4.00 ng/mL LAB CHEMISTRY METHOD 07/12/2024 10:14 PM EDT [facility] Blood Venous blood specimen / Unknown Venipuncture / Unknown 07/12/2024 4:25 PM EDT 07/12/2024 4:25 PM EDT Narrative [facility] - 07/12/2024 10:14 PM EDT The Siemens Advia Centaur Chemiluminescent Immunoassay is used. Results obtained with different assay methods or kits cannot be used interchangeably. Results cannot be interpreted as absolute evidence of the presence or absence of malignant disease. us Jovon Ramirez MD LAB BLOOD ORDERABLES Final Resu lt Performing Organization Address City/[facility]/ZIP Co de Phone Number [facility] [address] [place] [address], [place] [phone] * Testosterone, total (07/12/2024 4:25 PM EDT) [facility] Testosterone 322 229 - 902 ng/dL LAB CHEMISTRY METHOD 07/12/2024 7:30 PM EDT [facility] Blood Venous blood specimen / Unknown Venipuncture / Unknown 07/12/2024 4:25 PM EDT 07/12/2024 4:25 PM EDT us Jovon Ramirez MD LAB BLOOD ORDERABLES Final Resu lt [facility] [address] [place] [address], [place] [phone] * Comprehensive metabolic panel (07/12/2024 4:25 PM EDT) [facility] Sodium 143 133 - 145 mmol/L LAB CHEMISTRY METHOD 07/12/2024 7:03 PM EDT [facility] Potassium 4.1 3.5 - 5.5 mmol/L LAB CHEMISTRY METHOD 07/12/2024 7:03 PM [facility] Chloride 105 96 - 110 mmol/L LAB CHEMISTRY METHOD 07/12/2024 7:03 PM [facility] CO2 30 21 - 32 mmol/L LAB CHEMISTRY METHOD 07/12/2024 7:03 PM [facility] Anion Gap 8 3 - 11 LAB CHEMISTRY METHOD 07/12/2024 7:03 PM [facility] Glucose 92 70 - 100 mg/dL LAB CHEMISTRY METHOD 07/12/2024 7:03 PM [facility] BUN 19 5 - 25 mg/dL LAB CHEMISTRY METHOD 07/12/2024 7:03 PM [facility] Creatinine 0.77 0.70 - 1.30 mg/dL LAB CHEMISTRY METHOD 07/12/2024 7:03 PM [facility] eGFR 101 >=60 mL/min/1. 73m2 LAB CHEMISTRY METHOD 07/12/2024 7:03 PM [facility] Comment:Calculation based on the Chronic Kidney Disease Epidemiology Collaboration (CKD-EPI) equation refit without adjustment for race. BUN/Creatinine Ratio 24.7 LAB CHEMISTRY METHOD 07/12/2024 7:03 PM [facility] Calcium 9.6 8.5 - 10.5 mg/dL LAB CHEMISTRY METHOD 07/12/2024 7:03 PM [facility] AST (SGOT) 27 10 - 42 unit/L LAB CHEMISTRY METHOD 07/12/2024 7:03 PM [facility] ALT (SGPT) 38 10 - 60 unit/L LAB CHEMISTRY METHOD 07/12/2024 7:03 PM [facility] Alkaline Phosphatase 65 42 - 121 unit/L LAB CHEMISTRY METHOD 07/12/2024 7:03 PM [facility] Total Protein 7.2 6.0 - 8.0 g/dL LAB CHEMISTRY METHOD 07/12/2024 7:03 PM [facility] Albumin 4.1 3.2 - 5.0 g/dL LAB CHEMISTRY METHOD 07/12/2024 7:03 PM EDT [facility] Total Bilirubin 1.0 0.0 - 1.4 mg/dL LAB CHEMISTRY METHOD 07/12/2024 7:03 PM EDT [facility] Blood Venous blood specimen / Unknown Venipuncture / Unknown 07/12/2024 4:25 PM EDT 07/12/2024 4:25 PM EDT Jovon Ramirez MD LAB BLOOD ORDERABLES Final Resu lt [facility] [address] [place] [address], [place] [phone] * Hepatitis C Screening (05/07/2023) Pathologist [facility] Hepatitis C Screening Abstracted Historical Provider HEALTH MAINTENANCE Final Result from Last 3 Months or Most Recently Relevant to Health Maintenance Insurance Care Teams Executive Chairman Relationship Specialty Start Date End Date Jovon Ramirez MD [address] [place] [address] PCP - General Internal Medicine 02/02/21
[2024-10-04] VITALS (9 sets, daily range): BP systolic 121–165; BP diastolic 74–86; PULSE 77–83; RESP 12–18; TEMP 36.3–37.1; O2SAT 94–98
--- NOTE | 2024-10-04 | ECG_ITS ---
Test Reason : ALLERGIC REACTION Blood Pressure : */* mmHG Vent. Rate : 77 BPM Atrial Rate : 77 BPM P-R Int : 278 ms QRS Dur : 94 ms QT Int : 376 ms P-R-T Axes : 51 17 15 degrees QTcB Int : 425 ms Sinus rhythm with 1st degree A-V block Otherwise normal ECG When compared with ECG of 02-Jan-2023 14:04, No significant change was found Referred By: Kriss Owen Electronically Signed By: Jayro Miramontes
--- NOTE | 2024-10-04 00:46 | PM.IMHP ---
History of Present Illness Date of Service: 10/04/24 <MARION Dickens Last Filed: 10/04/24 01:17> Attending physician on admission: Bonifacio Hernandez <MARION Dickens Last Filed: 10/04/24 01:17> Chief Complaint: difficulty swallowing, lip swelling <MARION Dickens Last Filed: 10/04/24 01:17> Patient is a 63-year-old male with a past medical history significant for hypertension and HLD, who presented to the ED due to throat tightness, difficulty swallowing, foreign body sensation in the throat and mild lip swelling occurring about 30 minutes prior to arrival. He denies any known allergens he reports that he atrium earlier today but has never had issues with this in the past. He denies any chest pain, shortness of breath or wheezing. No headache, nausea, vomiting or abdominal pain. He does not have a sore throat but just a foreign body sensation. No nasal congestion or rhinorrhea. He denies any rash or pruritus. He has been taking hydrochlorothiazide with lisinopril for at least 3 years. In the ED the patient was treated with dexamethasone, Solu-Medrol, Benadryl, 1 L IV fluids and famotidine. The patient reports that he has had some improvement but still has a foreign body sensation. <MARION Dickens Last Filed: 10/04/24 01:17> Review of Systems Constitutional: Constitutional: Denies body ache(s), Denies chills, Denies fatigue, Denies fever(s) and Denies headache(s) <MARION Dickens Last Filed: 10/04/24 01:17> Eyes: Eyes: Denies change in vision and Denies loss of vision <MARION Dickens Last Filed: 10/04/24 01:17> ENT: Denies dizziness, Denies headache(s), Reports lip swelling, Denies nasal congestion, Denies nasal discharge, Denies neck pain, Denies sore throat and Reports throat swelling <MARION Dickens Last Filed: 10/04/24 01:17> Cardiovascular: Cardiovascular: Denies chest pain, Denies rapid heart rate, Denies leg edema, Denies lightheadedness and Denies dyspnea <SHAWANDA Dickens - Last Filed: 10/04/24 01:17> Respiratory: Respiratory: Denies chest congestion, Denies cough, Denies dyspnea and Denies wheezing <Kriss Owen [facility] - Last Filed: 10/04/24 01:17> Gastrointestinal: Gastrointestinal: Denies abdominal pain, Denies diarrhea, Denies nausea and Denies vomiting <Kriss Owen [facility] [employer] Last Filed: 10/04/24 01:17> Genitourinary: Genitourinary: Denies dysuria and Denies urinary urgency <Kriss Owen [facility] [employer] Last Filed: 10/04/24 01:17> Musculoskeletal: Musculoskeletal: Denies myalgias and Denies neck pain <Kriss Owen [facility] [employer] Last Filed: 10/04/24 01:17> Integumentary/Breasts: Skin/Breast: Denies rash <Krissjanice Owen [facility] [employer] Last Filed: 10/04/24 01:17> Neurologic: Denies confusion, Denies dizziness, Denies headache(s) and Denies loss of vision <Kriss Owen [facility] [employer] Last Filed: 10/04/24 01:17> Psychiatric: Psychiatric: Denies confusion <Kriss Owen [facility] [employer] Last Filed: 10/04/24 01:17> Endocrine: Endocrine: Denies fatigue <Kriss Owen [facility] [employer] Last Filed: 10/04/24 01:17> Hematologic/Lymphatic: Hematologic/Lymphatic: Denies easy bleeding and Denies easy bruising <Kriss Owen [facility] [employer] Last Filed: 10/04/24 01:17> Allergic/Immunologic: Allergic/Immunologic: Reports lip swelling, Reports throat swelling and Denies wheezing <Kriss Owen [facility] [employer] Last Filed: 10/04/24 01:17> [facility] Medical History: Medical History (Updated 10/04/24 @ 03:46 by Bonifacio Hernandez MD) HLD (hyperlipidemia) Flu-like symptoms Viral upper respiratory tract infection with cough Hypertension <MARION Dickens Last Filed: 10/04/24 01:17> Functional capacity: independent ambulation <MARION Dickens Last Filed: 10/04/24 01:17> Social History: Social History Alcohol intake: current Alcohol intake frequency: 0-2 drinks per day Alcohol type: beer Patient Tobacco Use Status: Never used Tobacco Smoked in Last 30 Days: No Use of substances other than those prescribed or required for medical reasons: No Advance Directives: No Advance Directives Information Provided: Yes Do you have a plan to hurt others: No Plan <MARION Dickens Last Filed: 10/04/24 01:17> Narrative: no smoking, occ etoh, no drug use <MARION Dickens Last Filed: 10/04/24 01:17> Meds Allergies/Adverse reactions: Allergies Allergy/AdvReac Type Severity Reaction Status Date / Time No Known Allergies Allergy Verified 10/03/24 22:36 <MARION Dickens Last Filed: 10/04/24 01:17> Home medications: Home Medications ?Medication ?Instructions ?Recorded ?Confirmed ?Last Taken ?Type simvastatin 40 mg tablet 40 mg PO BEDTIME 12/11/23 Unknown History <MARION Dickens Last Filed: 10/04/24 01:17> Physical Exam Vital Signs and Narrative: Vital Signs: Last Vital Signs Temp 98.7 F 10/04/24 00:26 Pulse 78 10/04/24 00:26 Resp 12 10/04/24 00:26 BP 140/80 H 10/04/24 00:26 Pulse Ox 97 10/04/24 00:26 O2 Del Method Room Air 10/04/24 00:26 BMI result Body Mass Index 31.0 <MARION Dickens Last Filed: 10/04/24 01:17> General: AOx3, no acute distress HEENT: no obvious lip swelling, no tongue swelling. airway patent. pt able to drink and talk without difficulty. white patchy lesions in the posterior pharynx. no obvious cervical lymphadenopathy. Resp: CTA bilaterally, no wheezing, no respiratory distress CVS: S1, S2, RRR GI: +BS, NT, no distention Skin: Warm, dry. no rash. Neuro: Cranial nerves II-XII grossly intact bilaterally. Motor grossly intact bilaterally Extremities: No LE edema Psych: Appropriate affect <MARION Dickens Last Filed: 10/04/24 01:17> Const: General: No confusion <MARION Dickens Last Filed: 10/04/24 01:17> Orientation/consciousness: No confusion <MARION Dickens Last Filed: 10/04/24 01:17> Neuro: General: No confusion <MARION Dickens Last Filed: 10/04/24 01:17> Results Labs CBC and Chem 7: 10/03/24 22:55 10/03/24 22:55 <MARION Dickens Last Filed: 10/04/24 01:17> Labs: Laboratory Results - last 24 hr 10/03/24 22:55 MCV 86.4 MCH 30.9 MCHC 35.7 RDW 12.1 Plt Count 201 MPV 9.5 Immature Gran % (Auto) 0.3 Neut % (Auto) 63.1 Lymph % (Auto) 25.9 [place] % (Auto) 8.4 Eos % (Auto) 2.0 Baso % (Auto) 0.3 Lymph # (Auto) 1.6 [place] # (Auto) 0.5 Eos # (Auto) 0.1 Baso # (Auto) 0.0 Abs Immat Gran (auto) 0.02 Absolute Neuts (auto) 3.8 Absolute Nucleated RBC 0.000 Nucleated RBC % (auto) 0.0 Anion Gap 14 Estim Creat Clear Calc 62.7 Estimated GFR > 60 Random Glucose 111 Calcium 8.9 Total Bilirubin 0.7 AST 22 ALT 28 Alkaline Phosphatase 59 Total Protein 6.7 Albumin 4.4 <MARION Dickens Last Filed: 10/04/24 01:17> Assessment and Plan (1) Angioedema: Qualifiers: Encounter type: initial encounter Qualified Code(s): T78.3XXA - Angioneurotic edema, initial encounter <MARION Dickens Last Filed: 10/04/24 01:17> Status: Acute <Kriss Owen PA-C - Last Filed: 10/04/24 01:17> (2) Class 1 obesity: Status: Acute <Kriss Owen PA-C - Last Filed: 10/04/24 01:17> Patient is a 63-year-old male with a past medical history significant for hypertension and HLD, who presented to the ED due to throat tightness, difficulty swallowing, foreign body sensation in the throat and mild lip swelling occurring about 30 minutes prior to arrival. angioedema, shellfish allergy vs elana inhibitor - throat swelling, foreign body sensation and mild lip sweling improved with solumedrol, dexamethasone, famotadine and benadryl - exposure to shellfish earlier today without previous allerigc reactions. no hives or pruritis - has been on HCTZ/lisinopril for 3 years - discontinue HCTZ/lisinopril - continue solumedrol 40mg BID, benadryl 25mg Q6H and famotidine 20mg BID - check C4, c1 esterase inhibitor, CRP, ESR - monitor on tele HTN - BP ok at this time. holding HCTZ/lisinopril HLD - continue statin class 1 obesity - BMI 31.0 - weight loss encouraged med rec pending full code VTE prophy: lovenox Pt with angioedema, shellfish allergy vs elana inhibitor, requiring admission for obsevation due to continued swallowing difficulties. <Kriss Owen PA-C - Last Filed: 10/04/24 01:17> Patient is a 63-year-old male with a past medical history significant for hypertension and HLD, who presented to the ED due to throat tightness, difficulty swallowing, foreign body sensation in the throat and mild lip swelling occurring about 30 minutes prior to arrival. angioedema, shellfish allergy vs elana inhibitor - throat swelling, foreign body sensation and mild lip sweling improved with solumedrol, dexamethasone, famotadine and benadryl - exposure to shellfish earlier today without previous allerigc reactions. no hives or pruritis - has been on HCTZ/lisinopril for 3 years - discontinue lisinopril - continue solumedrol 40mg BID, benadryl 25mg Q6H and famotidine 20mg BID - check C4, c1 esterase inhibitor, CRP, ESR - monitor on tele HTN - BP ok at this time. holding lisinopril - continue HCTZ HLD - continue statin class 1 obesity - BMI 31.0 - weight loss encouraged med rec pending full code VTE prophy: lovenox Pt with angioedema, shellfish allergy vs elana inhibitor, requiring admission for obsevation due to continued swallowing difficulties. <Bonifacio Hernandez MD - Last Filed: 10/04/24 03:46> Quality Stroke Does the patient have a stroke diagnosis?: No <Kriss Owen PA-C - Last Filed: 10/04/24 01:17> VTE Prior VTE?: No <Kriss Owen PA-C - Last Filed: 10/04/24 01:17> VTE Risk Level:: Medical - moderate - high <Kriss Owen PA-C - Last Filed: 10/04/24 01:17> VTE Device Contraindication: Treatment Not Indicated <Kriss Owen PA-C - Last Filed: 10/04/24 01:17> VTE Drug Contraindication: N/A - Med Ordered <Kriss Owen PA-C - Last Filed: 10/04/24 01:17>
--- NOTE | 2024-10-04 00:52 | PC.NURSE ---
picture of EKG sent to Hospitalist, SHAWANDA Dickens via Hublished at [id number]
[2024-10-04] MEDS: Enoxaparin Sodium 40 MG/0.4 ML SYRINGE SUBCUT (01:22)
--- NOTE | 2024-10-04 01:25 | PC.NURSE ---
pt medicated as per Mar. reporting 6-7/10 pain level but refusing prn pain medication at this time.
[2024-10-04 01:44] LABS: Thyroid Stimulating Hormone 1.48 uIU/mL (0.32-4.0)
[2024-10-04 02:01] LABS: Erythrocyte Sedimentation Rate 5 MM/HR (0-15)
[2024-10-04] MEDS: diphenhydrAMINE HCL 25 MG CAPSULE PO ×3 (06:03→16:57)
[2024-10-04 07:13] LABS: Hematocrit 37.4 % (42.0-52.0); Hemoglobin 13.4 g/dl (14.0-18.0); Mean Corpuscular HGB Conc 35.8 g/dl (31.0-36.0); Mean Corpuscular Volume 86.6 fL (80.0-98.0); Mean Platelet Volume 9.7 fL (9.4-12.4); Platelet Count 206 X10*3/uL (160-400); Red Blood Count 4.32 X10*6/uL (4.60-5.80); Red Cell Distribution Width 11.9 % (11.0-16.0)
[2024-10-04 07:29] LABS: Anion Gap 13 (12-20); Blood Urea Nitrogen 27 mg/dL (9-16); Calcium 8.6 mg/dL (8.4-10.2); Carbon Dioxide 23 mmol/L (22-29); Chloride 106 mmol/L (96-108); Creatinine Clr Calc Pharmacy 95.6; Estimated Glomerular Filt Rate > 60; Glucose Random 158 mg/dL (60-115); Potassium 3.9 mmol/L (3.3-5.1); Sodium 138 mmol/L (135-145)
[2024-10-04] MEDS: 0.9 % Sodium Chloride Flush 3 ML SYRINGE IVFLUSH ×2 (07:33→15:13)
--- NOTE | 2024-10-04 07:36 | PC.NURSE ---
Patient is a 63-year-old male with a past medical history significant for hypertension and HLD, who presented to the ED due to throat tightness, difficulty swallowing, foreign body sensation in the throat and mild lip swelling occurring about 30 minutes prior to arrival. Angioedema, shellfish allergy vs elana inhibitor. Patient alert and oriented. Patient states swelling is greatly improved. ? lips sl swollen. monitoring and evaluation advisor maintained and 1st degree AVB noted. Lungs clear bilat. Respirations even and non-labored. Abdomen soft, non-tender with positive bowel sounds. Positive pedal pulses with no edema.
--- NOTE | 2024-10-04 07:59 | HO.PM.IMPN ---
Subjective Subjective Date of Service: 10/04/24 Interval History: Much improved, feels back to baseline Reports lower lip tingling and swelling resolved Reports foreign body sensation in throat resolved Denies difficulty breathing or swallowing No F/C/N/V/D Denies chest pain or pressure Review of Systems Negative except for that which is sated in the [facility] Physical Exam Vital Signs: Vital Signs: Last Vital Signs Temp 98.0 F 10/04/24 05:55 Pulse 77 10/04/24 05:55 Resp 17 10/04/24 05:55 BP 132/74 10/04/24 05:55 Pulse Ox 96 10/04/24 05:55 O2 Del Method Room Air 10/04/24 05:55 BMI result Body Mass Index 31.0 General: AOx3, no acute distress Face/Mouth: airways patent; no noticeable swelling of lips or throat; no lymphadenopathy. Oropharynx unremarkable Resp: CTA bilaterally CVS: S1, S2, RRR GI: +BS, NT, no distention Skin: Warm, dry Neuro: Cranial nerves II-XII grossly intact bilaterally. Motor grossly intact bilaterally Extremities: No edema Psych: Appropriate affect Objective Data Active Medications Acetaminophen (Acetaminophen 325 Mg Tablet) 975 mg PO Q6H PRN PRN Reason: Pain, Mild 1-3,fever,headache Calcium Carbonate (Calcium Carbonate 750 Mg Tab.Chew) 750 mg PO Q4H PRN PRN Reason: Heartburn Diphenhydramine HCl (Diphenhydramine Hcl 25 Mg Capsule) 25 mg PO Q6H [facility] Last Admin: 10/04/24 06:03 Dose: 25 mg Documented By: ZENAIDA Enoxaparin Sodium (Enoxaparin Sodium 40 Mg/0.4 Ml Syringe) 40 mg SUBCUT Q24H [facility] Last Admin: 10/04/24 01:22 Dose: 40 mg Documented By: ZENAIDA Famotidine (Famotidine 20 Mg Tablet) 20 mg PO BID [facility] Magnesium Hydroxide (Milk Of Magnesia 30 Ml Oral.Susp) 30 ml PO DAILY PRN PRN Reason: Constipation Melatonin (Melatonin 3 Mg Tablet) 6 mg PO BEDTIME PRN PRN Reason: Insomnia Methylprednisolone Sodium Succinate (Methylprednisolone Sod Succ 40 Mg Vial) 40 mg IVPUSH BID [facility] Ondansetron HCl (Ondansetron Hcl 4 Mg/2 Ml Vial) 4 mg IVPUSH Q8H PRN PRN Reason: Nausea and Vomiting Oxycodone HCl (Oxycodone Hcl Immed Release 5 Mg Tablet) 5 mg PO Q6H PRN PRN Reason: Pain, Severe (Pain Scale 7-10) Sodium Chloride (0.9 % Sodium Chloride Flush 3 Ml Syringe) 3 ml IVFLUSH QSHIFT [facility] Last Admin: 10/04/24 07:33 Dose: 3 ml Documented By: NEEL Labs 10/04/24 06:36 10/04/24 06:36 Labs: Laboratory Results - last 24 hr 10/03/24 10/04/24 10/04/24 22:55 00:53 06:36 MCV 86.4 86.6 MCH 30.9 31.0 MCHC 35.7 35.8 RDW 12.1 11.9 Plt Count 201 206 MPV 9.5 9.7 Immature Gran % (Auto) 0.3 Neut % (Auto) 63.1 Lymph % (Auto) 25.9 [place] % (Auto) 8.4 Eos % (Auto) 2.0 Baso % (Auto) 0.3 Lymph # (Auto) 1.6 [place] # (Auto) 0.5 Eos # (Auto) 0.1 Baso # (Auto) 0.0 Abs Immat Gran (auto) 0.02 Absolute Neuts (auto) 3.8 Absolute Nucleated RBC 0.000 0.000 Nucleated RBC % (auto) 0.0 0.0 ESR 5 Anion Gap 14 13 Estim Creat Clear Calc 62.7 95.6 Estimated GFR > 60 > 60 Random Glucose 111 158 H Calcium 8.9 8.6 Total Bilirubin 0.7 AST 22 ALT 28 Alkaline Phosphatase 59 C-Reactive Protein 0.20 Total Protein 6.7 Albumin 4.4 TSH 1.48 Assessment and Plan (1) Lip swelling: Status: Acute (2) Foreign body sensation in throat: Status: Acute Plan Patient is a 63-year-old male with a past medical history significant for hypertension and HLD, who presented to the ED due to throat tightness, difficulty swallowing, foreign body sensation in the throat and mild lip swelling occurring about 30 minutes prior to arrival. Lip swelling and foreign body sensation Throat swelling, foreign body sensation and mild lip sweling improved with solumedrol, dexamethasone, famotadine and benadryl Exposure to shellfish earlier today without previous allergic reactions. no hives or pruritis Has been on HCTZ/lisinopril for 3 years Concerning for possible allergic rxn to shellfish vs medication Continue solumedrol 40mg BID, benadryl 25mg Q6H and famotidine 20mg BID CRP and ESR WNL; check C4, c1 esterase inhibitor, CRP, ESR Monitor on tele HTN BP ok at this time. holding HCTZ/lisinopril HLD Continue statin class 1 obesity BMI 31.0 Weight loss encouraged Full code VTE prophy: naren Pt admitted to the hospital under observation for monitoring of possible allergic reaction involving the mouth and throat. Quality Stroke Does the patient have a stroke diagnosis?: No VTE Prior VTE?: No VTE Risk Level:: Medical - moderate - high VTE Device Contraindication: Treatment Not Indicated VTE Drug Contraindication: N/A - Med Ordered
[2024-10-04] MEDS: Famotidine 20 MG TABLET PO ×2 (08:28→20:23)
[2024-10-04] MEDS: methylPREDNISolone Sod Succ 40 MG VIAL IVPUSH ×2 (08:28→20:21)
--- NOTE | 2024-10-04 08:47 | PHA.MEDREC ---
Pharmacy Consult ? Medication Reconciliation Pharmacy has completed the medication reconciliation.
--- NOTE | 2024-10-04 13:18 | MHC.CM.PN ---
PT REPORTS HE LIVES WITH HIS AND IS INDEPENDENT WITH CARE HE HAS NO DME AND NO SERVICES COPY OF HCP REQUESTED, HE REPORTS HIS IS HIS AGENT PCP: [facility] NOTICE DELIVERED DCP: HOME NO SERVICES VIA SELF TRANSPORT
[2024-10-04] MEDS: Acetaminophen 325 MG TABLET 975 MG PO (15:07)
[2024-10-04] MEDS: oxyCODONE HCl Immed Release 5 MG TABLET PO (20:22)
[2024-10-05] VITALS: BP 148/86; PULSE 90; RESP 17; TEMP 36.6; O2SAT 95
[2024-10-05] MEDS: Enoxaparin Sodium 40 MG/0.4 ML SYRINGE SUBCUT (00:36)
[2024-10-05] MEDS: diphenhydrAMINE HCL 25 MG CAPSULE PO ×2 (00:36→06:10)
[2024-10-05] MEDS: 0.9 % Sodium Chloride Flush 3 ML SYRINGE IVFLUSH ×2 (00:37→08:30)
[2024-10-05 03:08] VITALS: BP 138/81; PULSE 67; RESP 18; TEMP 36.7; O2SAT 98
--- NOTE | 2024-10-05 04:11 | ECG_ITS ---
Test Reason : rhythm changes Blood Pressure : */* mmHG Vent. Rate : 70 BPM Atrial Rate : 70 BPM P-R Int : 238 ms QRS Dur : 112 ms QT Int : 398 ms P-R-T Axes : 47 43 30 degrees QTcB Int : 429 ms Sinus rhythm with 1st degree A-V block Nonspecific T wave abnormality Abnormal ECG When compared with ECG of 04-Oct-2024 00:36, No significant change was found Referred By: John Gonzalez Electronically Signed By: Jayro Miramontes
--- NOTE | 2024-10-05 04:27 | PC.NURSE ---
Tele monitor with SR at the start of shift. Around 0350 patient noted to have increasing NM and second degree on monitor. Picture of EKG sent to MD. EKG ordered and completed. Showing Sinus with a First Degree. Cardiology consult placed by .
[2024-10-05 07:31] VITALS: BP 142/86; PULSE 63; RESP 14; TEMP 36.5; O2SAT 98
[2024-10-05] MEDS: Famotidine 20 MG TABLET PO (08:29)
[2024-10-05] MEDS: methylPREDNISolone Sod Succ 40 MG VIAL IVPUSH (08:29)
[2024-10-05] MEDS: hydroCHLOROthiazide 12.5 MG TABLET PO (08:29)
[2024-10-05] MEDS: amLODIPine Besylate 5 MG TABLET PO (08:29)
--- NOTE | 2024-10-05 11:08 | PM.DS ---
DS: Providers Provider Date of Service: 10/05/24 Date of admission: 10/04/24 00:27 Date of discharge: 10/05/24 Primary care physician: Jovon Ramirez III, MD Consults: 10/05/24 04:11 Consult to Cardiology Routine Consulting Provider: [facility] Reason for consultation: 2*AVB on tele Has provider been notified: No DS: Diagnosis Discharge Diagnosis (1) Lip swelling: Status: Resolved (2) Foreign body sensation in throat: Status: Resolved DS: Summary Hospital Course Hospital Course: From admission HPI: Patient is a 63-year-old male with a past medical history significant for hypertension and HLD, who presented to the ED due to throat tightness, difficulty swallowing, foreign body sensation in the throat and mild lip swelling occurring about 30 minutes prior to arrival. He denies any known allergens he reports that he atrium earlier today but has never had issues with this in the past. He denies any chest pain, shortness of breath or wheezing. No headache, nausea, vomiting or abdominal pain. He does not have a sore throat but just a foreign body sensation. No nasal congestion or rhinorrhea. He denies any rash or pruritus. He has been taking hydrochlorothiazide with lisinopril for at least 3 years. In the ED the patient was treated with dexamethasone, Solu-Medrol, Benadryl, 1 L IV fluids and famotidine. The patient reports that he has had some improvement but still has a foreign body sensation. Hospital course: Pt was admitted to the hospital due to persistent foreign body sensation in throat and treated with diphenhydramine, Solu-Medrol, and famotidine to good effect. Symptoms soon resolved and pt was back to baseline by yesterday night. This morning continues to be asymptomatic. Pt likely experienced an allergic reaction either from shellfish (eating shrimp 30 minutes prior to symptom onset) or from YAMINI-inhibitor. Patient should stop lisinopril and will switch to amlodipine 5mg daily. Continue taking hydrochlorothiazide 12.5 mg daily for hypertension. Also recommend avoiding eating shellfish until you can see an candy dipper hand for testing. Follow up with your PCP in 1-2 week's time for routine post-hospital follow up, monitoring of BP, and candy dipper hand referral. For GERD, will prescribe a 14-day course of omeprazole Resume all other home meds. Time Attestation Discharge Coordination Time (in mins): 33 Quality: Safe Use of Opioids Does Pt have an Active Cancer Diagnosis on the Problem List?: No Quality: Stroke Does the patient have a stroke diagnosis?: No Physical Exam Vital Signs: Vital Signs: Last Vital Signs Temp 97.7 F 10/05/24 07:31 Pulse 63 10/05/24 07:31 Resp 14 10/05/24 07:31 BP 142/86 H 10/05/24 07:31 Pulse Ox 98 10/05/24 07:31 O2 Del Method Room Air 10/05/24 07:31 BMI result Body Mass Index 31.0 General: AOx3, no acute distress Face/mouth/throat: Airways patent, no facial or lip swelling, oropharynx unremarkable Resp: CTA bilaterally CVS: S1, S2, RRR GI: +BS, NT, no distention Skin: Warm, dry Neuro: Cranial nerves II-XII grossly intact bilaterally. Motor grossly intact bilaterally Extremities: No edema Psych: Appropriate affect Discharge Plan Discharge Anticipated Discharge Date/Time: 10/05/24 12:00 Patient Disposition: Home, Self-Care Discharge Diagnosis: Angioedema Referrals: Jovon Ramirez III, MD [Primary Care Provider, Medical] - 1 Week Discharge Medications: New amlodipine 5 mg tablet 5 mg PO DAILY Qty: 90 0RF Rx Instructions: Take one tablet daily for hypertension hydrochlorothiazide 12.5 mg tablet 12.5 mg PO DAILY Qty: 90 0RF Rx Instructions: Take one tablet daily for hypertension omeprazole 40 mg capsule,delayed release(DR/EC) 40 mg PO DAILY Qty: 14 0RF Rx Instructions: Take one capsule daily for acid reflux for the next 14 days Continued valacyclovir 1 gram tablet 2,000 mg PO BID tadalafil 5 mg tablet 5 mg PO DAILY Discontinued lisinopril-hydrochlorothiazide 20-12.5 mg tablet 1 tab PO DAILY Discharge Orders: Discharge Order (Routine); Ordered 10/05/24 Ordered By: Jana Mcmillan Activity on Discharge: As tolerated Stand Alone Forms: Patient Portal Discharge page Print Language: Barbadian Care Plan Goals: See below Health Concerns: Monitor for recurrence of symptoms, including face/lip swelling, difficulty swallowing, foreign body sensation in throat Plan of Treatment: Stop lisinopril Avoid eating shellfish until see an candy dipper hand Start amlodipine 5 mg daily and hydrochlorothiazide 12.5 mg daily for hypertension Follow up with PCP in 1-2 week's time for blood pressure management Monitor blood pressure twice a day (mornings and evenings) Follow up with candy dipper hand for shellfish allergy testing Assessment: See discharge summary Discharge Date/Time: 10/05/24 11:51
--- NOTE | 2024-10-05 11:29 | MHC.CM.PN ---
Pt has been medically cleared for DC, he will go home via family transport, plan is self care.
[2024-10-09 10:54] LABS: C1 Esterase Inhibitor >100 % (>=68)
== END 2024-10-05 11:51 | disposition home or self-care (01) ==
LOC: HO.ED 10-04 00:18 → HO.EDOVER 10-04 00:37 → HO.IMC 10-04 07:37
PROVIDERS: Admitting Provider Physician Assistant; Emergency Provider Emergency Medicine; PCP Internal Medicine; Visit Provider Student in an Organized Health Care Education/Training Program
DX: R09.A2 Foreign body sensation, throat (principal); T78.3XXA Angioneurotic edema, initial encounter; R22.0 Localized swelling, mass and lump, head; X58.XXXA Exposure to other specified factors, initial encounter; Y92.9 Unspecified place or not applicable; Y93.9 Activity, unspecified; Y99.9 Unspecified external cause status; R13.10 Dysphagia, unspecified; K21.9 Gastro-esophageal reflux disease without esophagitis; E78.5 Hyperlipidemia, unspecified; E66.811 Obesity, class 1; Z68.31 Body mass index [BMI] 31.0-31.9, adult; Z79.899 Other long term (current) drug therapy
CPT/HCPCS: 36415; 80048; 80053; 84443; 85025; 85027; 85652; 86140; 86160; 86161; 93005; 96372; 96374; 96375; 96376; 99222; 99285; J1100; J1200; J1308; J1650; J2919

== ENCOUNTER 2024-10-04 00:27 | Outpatient (BNV) | payer BC, SELFPAY | END 2024-10-04 00:36 | PROVIDERS: Admitting Provider Physician Assistant; Emergency Provider Emergency Medicine; PCP Internal Medicine; Visit Provider Internal Medicine Cardiovascular Disease | DX: I44.0 Atrioventricular block, first degree (principal) | CPT/HCPCS: 93010 ==

== ENCOUNTER 2024-10-04 00:27 | Outpatient (BNV) | payer BC, SELFPAY | END 2024-10-05 04:11 | PROVIDERS: Admitting Provider Physician Assistant; Emergency Provider Emergency Medicine; PCP Internal Medicine; Visit Provider Internal Medicine Cardiovascular Disease | DX: I44.0 Atrioventricular block, first degree (principal) | CPT/HCPCS: 93010 ==

== ENCOUNTER → 2024-10-04 00:27 | Outpatient (BNV) | payer BC, SELFPAY | PROVIDERS: Admitting Provider Physician Assistant; Emergency Provider Emergency Medicine; PCP Internal Medicine; Visit Provider Physician Assistant | DX: R22.0 Localized swelling, mass and lump, head (principal); R09.A2 Foreign body sensation, throat; T78.3XXA Angioneurotic edema, initial encounter; E66.811 Obesity, class 1 | CPT/HCPCS: 99223; 99499 ==